=== PATIENT | female | born 1990 | race Caucasian/White ===

== ENCOUNTER 2017-01-08 20:13 | Emergency (ER) | payer SELFPAY ==
[2017-01-08 20:23] VITALS: BP 136/97; PULSE 118; RESP 16; TEMP 100.1
--- NOTE | 2017-01-08 20:39 | ED ---
Female Urogenital HPI - General Chief complaint: Urogenital Stated complaint: Infected Cyst Time Seen by Provider: 01/08/17 20:29 Source: patient Mode of arrival: ambulatory Limitations: no limitations - History of Present Illness Initial comments: Patient is a 26-year-old female presents with chief complaint of left labial pain has been going on for 4 days. Patient has a history of Bartholin's cyst which she's had lanced before. Patient is new to the area and does not have OB/ PATIENT SUPPORT ASSISTANT follow-up. Patient states that over the last 4 days, the pain has gotten worse. She was seen at urgent care yesterday and was prescribed Bactrim however they did not have the ability to lanced at that time. Patient admits to chills at home, she denies nausea, vomiting, dysuria. Patient states that she is sexually active, she is unsure of her possibility of being . - Related Data Home Medications Medication Instructions Recorded Confirmed Cholecalciferol (Vitamin D3) 6,000 unit PO DAILY 01/08/17 01/08/17 [Vitamin D3] Levothyroxine Sodium [Synthroid] 75 mcg PO DAILY 01/08/17 01/08/17 Sulfamethox-Tmp 800-160Mg [Bactrim 1 tab PO Q12HR 01/08/17 01/08/17 DS 800-160 mg] Allergies Allergy/AdvReac Type Severity Reaction Status Date / Time No Known Allergies Allergy Verified 01/08/17 20:41 Review of Systems ROS Statement: Those systems with pertinent positive or pertinent negative responses have been documented in the HPI. ROS Other: All systems not noted in ROS Statement are negative. Constitutional: Reports: fever, chills Eyes: Denies: vision change ENT: Denies: congestion Respiratory: Denies: cough Cardiovascular: Denies: chest pain Endocrine: Denies: fatigue Gastrointestinal: Denies: abdominal pain, nausea, vomiting Genitourinary: Denies: dysuria Musculoskeletal: Denies: back pain Skin: Denies: rash Neurological: Denies: headache, weakness Past Medical History Additional Past Medical History / Comment(s): hypothyroidism. History of Any Multi-Drug Resistant Organisms: MRSA Date of last positivie culture/infection: 2009 MDRO Source:: vaginal cyst Past Surgical History: No Surgical Hx Reported Past Psychological History: No Psychological Hx Reported Smoking Status: Current every day smoker Past Alcohol Use History: Occasional Past Drug Use History: None Reported General Exam Limitations: no limitations General appearance: alert, in no apparent distress Head exam: Present: atraumatic, normocephalic Eye exam: Present: normal appearance Respiratory exam: Present: normal lung sounds bilaterally Cardiovascular Exam: Present: regular rate, normal rhythm, normal heart sounds GI/Abdominal exam: Present: soft. Absent: distended, tenderness Rectal exam: Present: deferred External exam: Present: erythema, swelling, other (Patient has what appears to be an infected Bartholin's cyst on her left lower labia.) Neurological exam: Present: alert, oriented X3 Psychiatric exam: Present: normal affect, normal mood Skin exam: Present: warm, dry, intact Course Vital Signs 01/08/17 20:19 Temperature 100.1 F H Pulse Rate 118 H Respiratory 16 Rate Blood Pressure 136/97 O2 Sat by Pulse 99 Oximetry Procedures - Incision & Drainage Consent Obtained: verbal consent Time Out Performed?: Yes Indication: Bartholin's cyst Site: vulva/vagina Anesthetic Used: lidocaine 1% Sterile Field Used?: No Scalpel Used: #11 Needle Aspiration Performed?: No Irrigation Performed?: Yes I&D Drainage Obtained: Pus, Blood Culture Obtained?: No Patient Tolerated Procedure: well Medical Decision Making - Medical Decision Making Patient presents with a chief complaint of left labial pain. History and physical examination are concerning for an infected Bartholin gland cyst. Patient was prescribed Bactrim 2 days ago, however the cyst was not lanced. At this time, I will perform an I&D. 9:21 PM Urinalysis is showing questionable evidence of urinary tract infection however patient is currently on Bactrim which would be adequate to treat. I&D was performed with copious purulent drainage. Wound was left open. Copious jet irrigation was used to clean the inside of the abscess. Patient will be given contact information for OB follow-up. She is instructed to follow with primary care and return to the emergency department if her symptoms worsen or change in anyway. Patient tolerated the procedure well. This time, she is stable for discharge. - Lab Data Lab Results 01/08/17 Range/Units 20:45 Urine Color Yellow Urine Appearance Clear (Clear) Urine pH 5.5 (5.0-8.0) Ur Specific [place] 1.014 (1.001-1.035) Urine Protein Negative (Negative) Urine Glucose (UA) Negative (Negative) Urine Ketones Negative (Negative) Urine Blood Small H (Negative) Urine Nitrite Negative (Negative) Urine Bilirubin Negative (Negative) Urine Urobilinogen <2.0 (<2.0) mg/dL Ur Leukocyte Esterase Moderate H (Negative) Urine RBC 2 (0-5) /hpf Urine WBC 3 (0-5) /hpf Ur Squamous Epith Cells 4 (0-4) /hpf Disposition Clinical Impression: Cyst of Bartholin's gland duct Disposition: HOME SELF-CARE Condition: Good Instructions: Bartholin Cyst (ED) Referrals: None,Stated [Primary Care Provider] - 1-2 days Nirmala Leigh MD [REFERRING] - 1-2 days Macarena Sneed DO [Doctor of Osteopathic Medicine] - 1-2 days Ember Garcia DO [Doctor of Osteopathic Medicine] - 1-2 days
[2017-01-08 20:57] LABS: Appearance,Urine Clear (Clear); Bilirubin,Urine Negative (Negative); Glucose,Urine (UA) Negative (Negative); Ketones,Urine Negative (Negative); Leukocyte Esterase,Urine Moderate (Negative); Nitrite,Urine Negative (Negative); PH, Urine 5.5 (5.0-8.0); Particle Count 3446; Protein,Urine Negative (Negative); RBC,Urine 2 /hpf (0-5); Specific Gravity,Urine 1.014 (1.001-1.035); Squamous Epithelial Cell,Urine 4 /hpf (0-4); UA Billing (MACRO vs. MICRO) MICRO; Urobilinogen,Urine <2.0 mg/dL (<2.0); WBC,Urine 3 /hpf (0-5)
== END 2017-01-08 21:43 | disposition home or self-care (01) ==
LOC: EC 20:13
DX: N75.0 Cyst of Bartholin's gland (principal); E03.9 Hypothyroidism, unspecified; F17.200 Nicotine dependence, unspecified, uncomplicated; Z79.899 Other long term (current) drug therapy
CPT/HCPCS: 56420; 81001; 81025; 99283

== ENCOUNTER 2017-06-21 20:02 | Emergency (ER) | payer OTHER ==
[2017-06-21 21:48] VITALS: RESP 18
[2017-06-21 21:49] LABS: Basophils % (A) 0 %; Eosinophils # (A) 0.1 k/uL (0-0.7); Eosinophils % (A) 1 %; HCT 36.7 % (34.0-46.0); HGB 12.5 gm/dL (11.4-16.0); Lymphocytes # (A) 2.9 k/uL (1.0-4.8); Lymphocytes % (A) 28 %; MCH 28.3 pg (25.0-35.0); MCHC 34.2 g/dL (31.0-37.0); MCV 82.9 fL (80.0-100.0); Monocytes # (A) 0.4 k/uL (0-1.0); Monocytes % (A) 4 %; Neutrophils # (A) 6.6 k/uL (1.3-7.7); Neutrophils % (A) 65 %; Platelet Count 321 k/uL (150-450); RBC 4.43 m/uL (3.80-5.40); RDW 14.1 % (11.5-15.5); WBC 10.2 k/uL (3.8-10.6)
[2017-06-21 21:59] LABS: INR 0.9 (<1.2); Prothrombin Time 9.3 sec (9.0-12.0)
[2017-06-21 22:05] LABS: ALT 17 U/L (9-52); AST 11 U/L (14-36); Albumin 3.6 g/dL (3.5-5.0); Alkaline Phosphatase 52 U/L (38-126); Anion Gap 10 mmol/L; Blood Urea Nitrogen 6 mg/dL (7-17); Calcium 9.4 mg/dL (8.4-10.2); Carbon Dioxide 24 mmol/L (22-30); Chloride 104 mmol/L (98-107); Glucose 88 mg/dL (74-99); Magnesium 1.7 mg/dL (1.6-2.3); Potassium 3.6 mmol/L (3.5-5.1); Sodium 138 mmol/L (137-145); Total Bilirubin 0.2 mg/dL (0.2-1.3); Total Protein 6.7 g/dL (6.3-8.2)
[2017-06-21 22:08] LABS: Creatine Kinase 31 U/L (30-135)
[2017-06-21 22:21] LABS: Creatine Kinase MB <0.2 ng/mL (0.0-2.4); Troponin I <0.012 ng/mL (0.000-0.034)
--- NOTE | 2017-06-21 22:43 | ED ---
Arrhythmia/Palpitations HPI - General Chief Complaint: Arrhythmia/Palpitations Stated Complaint: heart palps (19 wks preg) Time Seen by Provider: 06/21/17 20:29 Source: patient Mode of arrival: ambulatory Limitations: no limitations - History of Present Illness Initial Comments: 7 years old female she is a 20 weeks presented with the tachyarrhythmia on arrival her heart rate was 1:30 we don't have any tracing 9 indicating otherwise is sinus tach or whether this was a any other arrhythmias she had experienced the same sort of tachyarrhythmia off-and-on for the last 3 weeks she said the palpitation persisted for about 20 minutes she was lightheaded she was short winded she got dizzy but by the time she arrived in the room home heart rate dropped down to normal and she had no symptoms that time she said this has been happening more frequently she has no history of heart disease - Related Data Home Medications Medication Instructions Recorded Confirmed Fmk-Dkrc-Aqddq Acid 1 cap PO DAILY 06/21/17 06/21/17 [-U Capsule (formulary)] Allergies Allergy/AdvReac Type Severity Reaction Status Date / Time No Known Allergies Allergy Verified 06/21/17 20:57 Review of Systems ROS Statement: Those systems with pertinent positive or pertinent negative responses have been documented in the HPI. ROS Other: All systems not noted in ROS Statement are negative. Past Medical History Additional Past Medical History / Comment(s): hypothyroidism. History of Any Multi-Drug Resistant Organisms: MRSA Date of last positivie culture/infection: 2009 MDRO Source:: vaginal cyst Past Surgical History: No Surgical Hx Reported Past Psychological History: No Psychological Hx Reported Smoking Status: Current every day smoker Past Alcohol Use History: Occasional Past Drug Use History: None Reported General Exam - General Exam Comments Initial Comments: General: The patient is awake and alert, in no distress, and does not appear acutely ill. Skin: Skin is warm and dry and no rashes or lesions are noted. Eye: Pupils are equal, round and reactive to light, extra-ocular movements are intact; there is normal conjunctiva bilaterally. Ears, nose, mouth and throat: There are moist mucous membranes and no oral lesions. Neck: The neck is supple, there is no tenderness or JVD. Cardiovascular: There is a regular rate and rhythm. No murmur, rub or gallop is appreciated. Respiratory: To auscultation bilateral, no wheezing no rhonchi no distress respiratory leonardo noticed Gastrointestinal: Soft, non-distended, non-tender abdomen without masses or organomegaly noted. There is no rebound or guarding present. Bowel sounds are unremarkable. Back: There is no tenderness to palpation in the midline. There is no obvious deformity. Musculoskeletal: Normal ROM, no tenderness, There is no pedal edema. There is no calf tenderness or swelling. No cords were appreciated. Neurological: CN II-XII intact, Cranial nerves III through XII are intact. There are no obvious motor or sensory deficits. Coordination appears grossly intact. Speech is normal. Psychiatric: Cooperative, appropriate mood & affect, normal judgment. Limitations: no limitations Course Vital Signs 06/21/17 06/21/17 06/21/17 20:11 21:14 21:41 Temperature 97.7 F 97.7 F Pulse Rate 130 H 80 Pulse Rate [ 77 Composition Teacher ] Respiratory 20 20 Rate Blood Pressure 176/95 124/79 O2 Sat by Pulse 100 99 Oximetry 06/21/17 21:45 Temperature Pulse Rate 91 Pulse Rate [ Composition Teacher ] Respiratory 18 Rate Blood Pressure 124/79 O2 Sat by Pulse 98 Oximetry , EKG is within normal range CBC, compressive metabolic panel, troponin, TSH are all within normal range she is feeling fine and we'll try to get hold of her OB doctor Spoke with Dr neil her OB doctor, she aggred with the idea that she see cardiology as out patient in AM and get the holter monitor, Patient agree with that EKG Findings - EKG Comments: EKG Findings:: EKG is normal sinus rhythm ventricular rate is 81 LA interval is 142 QRS duration is 82 QT/QTC 362//420 review of today's EKG does not reveal any STEMI Medical Decision Making - Lab Data Result diagrams: 06/21/17 21:18 06/21/17 21:18 Lab Results 06/21/17 06/21/17 06/21/17 Range/Units 21:18 21:18 21:18 WBC 10.2 (3.8-10.6) k/uL RBC 4.43 (3.80-5.40) m/uL Hgb 12.5 (11.4-16.0) gm/dL Hct 36.7 (34.0-46.0) % MCV 82.9 (80.0-100.0) fL MCH 28.3 (25.0-35.0) pg MCHC 34.2 (31.0-37.0) g/dL RDW 14.1 (11.5-15.5) % Plt Count 321 (150-450) k/uL Neutrophils % 65 % Lymphocytes % 28 % Monocytes % 4 % Eosinophils % 1 % Basophils % 0 % Neutrophils # 6.6 (1.3-7.7) k/uL Lymphocytes # 2.9 (1.0-4.8) k/uL Monocytes # 0.4 (0-1.0) k/uL Eosinophils # 0.1 (0-0.7) k/uL Basophils # 0.0 (0-0.2) k/uL PT (9.0-12.0) sec INR (<1.2) APTT (22.0-30.0) sec Sodium 138 (137-145) mmol/L Potassium 3.6 (3.5-5.1) mmol/L Chloride 104 (98-107) mmol/L Carbon Dioxide 24 (22-30) mmol/L Anion Gap 10 mmol/L BUN 6 L (7-17) mg/dL Creatinine 0.50 L (0.52-1.04) mg/dL Est GFR (CKD-EPI)AfAm >90 (>60 ml/min/1.73 sqM) Est GFR (CKD-EPI)NonAf >90 (>60 ml/min/1.73 sqM) Glucose 88 (74-99) mg/dL Calcium 9.4 (8.4-10.2) mg/dL Magnesium 1.7 (1.6-2.3) mg/dL Total Bilirubin 0.2 (0.2-1.3) mg/dL AST 11 L (14-36) U/L ALT 17 (9-52) U/L Alkaline Phosphatase 52 (38-126) U/L Total Creatine Kinase 31 (30-135) U/L CK-MB (CK-2) <0.2 (0.0-2.4) ng/mL CK-MB (CK-2) Rel Index Troponin I <0.012 (0.000-0.034) ng/mL Total Protein 6.7 (6.3-8.2) g/dL Albumin 3.6 (3.5-5.0) g/dL TSH 3.200 (0.465-4.680) mIU/L 06/21/17 Range/Units 21:18 WBC (3.8-10.6) k/uL RBC (3.80-5.40) m/uL Hgb (11.4-16.0) gm/dL Hct (34.0-46.0) % MCV (80.0-100.0) fL MCH (25.0-35.0) pg MCHC (31.0-37.0) g/dL RDW (11.5-15.5) % Plt Count (150-450) k/uL Neutrophils % % Lymphocytes % % Monocytes % % Eosinophils % % Basophils % % Neutrophils # (1.3-7.7) k/uL Lymphocytes # (1.0-4.8) k/uL Monocytes # (0-1.0) k/uL Eosinophils # (0-0.7) k/uL Basophils # (0-0.2) k/uL PT 9.3 (9.0-12.0) sec INR 0.9 (<1.2) APTT 23.0 (22.0-30.0) sec Sodium (137-145) mmol/L Potassium (3.5-5.1) mmol/L Chloride (98-107) mmol/L Carbon Dioxide (22-30) mmol/L Anion Gap mmol/L BUN (7-17) mg/dL Creatinine (0.52-1.04) mg/dL Est GFR (CKD-EPI)AfAm (>60 ml/min/1.73 sqM) Est GFR (CKD-EPI)NonAf (>60 ml/min/1.73 sqM) Glucose (74-99) mg/dL Calcium (8.4-10.2) mg/dL Magnesium (1.6-2.3) mg/dL Total Bilirubin (0.2-1.3) mg/dL AST (14-36) U/L ALT (9-52) U/L Alkaline Phosphatase (38-126) U/L Total Creatine Kinase (30-135) U/L CK-MB (CK-2) (0.0-2.4) ng/mL CK-MB (CK-2) Rel Index Troponin I (0.000-0.034) ng/mL Total Protein (6.3-8.2) g/dL Albumin (3.5-5.0) g/dL TSH (0.465-4.680) mIU/L Disposition Clinical Impression: Palpitation Disposition: HOME SELF-CARE Instructions: Palpitations (ED) Referrals: None,Stated [Primary Care Provider] - 1-2 days Toribio Acosta MD [STAFF PHYSICIAN] - 1-2 days
[2017-06-21 23:43] VITALS: BP 168/78; PULSE 74; TEMP 97.8
== END 2017-06-21 23:27 | disposition home or self-care (01) ==
LOC: EC 20:02
DX: O99.89 Other specified diseases and conditions complicating pregnancy, childbirth and the puerperium (principal); R00.2 Palpitations; R42 Dizziness and giddiness; O99.332 Smoking (tobacco) complicating pregnancy, second trimester; F17.200 Nicotine dependence, unspecified, uncomplicated; Z3A.19 19 weeks gestation of pregnancy; Z86.14 Personal history of Methicillin resistant Staphylococcus aureus infection
CPT/HCPCS: 36415; 80053; 82550; 82553; 83735; 84443; 84484; 85025; 85610; 85730; 93005; 99285

== ENCOUNTER 2017-06-23 14:15 | Emergency (ER) | payer OTHER ==
[2017-06-23] MEDS ORDERED: SODIUM CHLORIDE 0.9% 1,000 ML IV ONE (15:05)
--- NOTE | 2017-06-23 15:14 | ED ---
SOB HPI - General Chief Complaint: Shortness of Breath Stated Complaint: 19 wks preg/SOB & heart racing Time Seen by Provider: 06/23/17 14:58 Source: patient Mode of arrival: wheelchair Limitations: no limitations - History of Present Illness Initial Comments: 27-year-old female patient presents to the emergency department today for complaints of palpitations and shortness of breath. Patient states around 2 PM this afternoon she was sitting at her desk at work when she had sudden onset racing heart and shortness of breath. She also reports dizziness with this. Patient states that it felt like she was doing physical activity however she was just sitting there. Patient is 19 weeks . She is . She denies any history of similar symptoms with her previous . States that she has been having intermittent episodes like this over the last few weeks. States that most recent episode was 2 days ago. States she is scheduled to have a Holter monitor placed however she was instructed to return here for symptoms came back. She states that she is starting to feel better at this time however it does still feel like her heart is racing. She denies any chest pain with this. Denies any leg or calf pain, denies any leg redness, leg swelling, recent trips or long car rides. Denies history of DVT personal or family. Denies any fevers or chills. She denies any near-syncope. Denies any abdominal pain, cramping, vaginal bleeding, vaginal discharge, hematuria, dysuria, urinary frequency, urinary urgency. She denies any history of asthma or lung conditions. - Related Data Home Medications Medication Instructions Recorded Confirmed Yyb-Hutp-Tpioo Acid 1 cap PO DAILY 06/21/17 06/23/17 [-U Capsule (formulary)] Allergies Allergy/AdvReac Type Severity Reaction Status Date / Time No Known Allergies Allergy Verified 06/23/17 15:06 Review of Systems ROS Statement: Those systems with pertinent positive or pertinent negative responses have been documented in the HPI. ROS Other: All systems not noted in ROS Statement are negative. Past Medical History Past Medical History: Thyroid Disorder Additional Past Medical History / Comment(s): hypothyroidism. History of Any Multi-Drug Resistant Organisms: MRSA Date of last positivie culture/infection: 2009 MDRO Source:: vaginal cyst Past Surgical History: No Surgical Hx Reported Past Psychological History: No Psychological Hx Reported Smoking Status: Current every day smoker Past Alcohol Use History: Occasional Past Drug Use History: None Reported General Exam Limitations: no limitations General appearance: alert, in no apparent distress, other (This is a well- developed, well-nourished adult female patient in no acute distress. Vital signs upon presentation are temperature 98.3, pulse 1:15, respirations 22, blood pressure 142/74, pulse ox 98% on room air.) Eye exam: Present: normal appearance, PERRL, EOMI. Absent: scleral icterus, conjunctival injection, periorbital swelling ENT exam: Present: normal exam, normal oropharynx, mucous membranes moist Respiratory exam: Present: normal lung sounds bilaterally. Absent: respiratory distress, wheezes, rales, rhonchi, stridor Cardiovascular Exam: Present: normal rhythm, tachycardia, normal heart sounds. Absent: systolic murmur, diastolic murmur, rubs, gallop, clicks GI/Abdominal exam: Present: soft, normal bowel sounds, other (Gravid abdomen.). Absent: distended, tenderness, guarding, rebound, rigid Neurological exam: Present: alert, oriented X3, CN II-XII intact Psychiatric exam: Present: normal affect, normal mood Skin exam: Present: warm, dry, intact, normal color. Absent: rash Course Vital Signs 06/23/17 06/23/17 14:35 17:18 Temperature 98.3 F 98.9 F Pulse Rate 115 H 93 Respiratory 22 20 Rate Blood Pressure 142/74 125/78 O2 Sat by Pulse 98 99 Oximetry Medical Decision Making - Medical Decision Making 27-year-old female patient presented to the emergency department today for evaluation of palpitations, shortness of breath, and dizziness. Physical examination is unremarkable. Patient is neurologically intact. EKG shows normal sinus rhythm with a rate of 95. heart tones are 138-144. Labs reviewed and were unremarkable. Patient has been having similar episodes to this over the last few weeks. She is scheduled to have altered her monitor placed on however we will change the order to an event monitor and have it placed today prior to her leaving here. She is instructed to follow up with her [facility] as well as cardiology. She is instructed to return here immediately for any new, worsening, or concerning symptoms. She verbalizes understanding and agrees with this plan. - Lab Data Result diagrams: 06/23/17 15:15 06/23/17 15:15 Lab Results 06/23/17 06/23/17 Range/Units 15:15 15:15 WBC 10.4 (3.8-10.6) k/uL RBC 4.21 (3.80-5.40) m/uL Hgb 11.7 (11.4-16.0) gm/dL Hct 34.2 (34.0-46.0) % MCV 81.3 (80.0-100.0) fL MCH 27.9 (25.0-35.0) pg MCHC 34.3 (31.0-37.0) g/dL RDW 14.0 (11.5-15.5) % Plt Count 312 (150-450) k/uL Neutrophils % 77 % Lymphocytes % 17 % Monocytes % 3 % Eosinophils % 2 % Basophils % 0 % Neutrophils # 8.0 H (1.3-7.7) k/uL Lymphocytes # 1.8 (1.0-4.8) k/uL Monocytes # 0.3 (0-1.0) k/uL Eosinophils # 0.2 (0-0.7) k/uL Basophils # 0.0 (0-0.2) k/uL Sodium 136 L (137-145) mmol/L Potassium 3.6 (3.5-5.1) mmol/L Chloride 106 (98-107) mmol/L Carbon Dioxide 19 L (22-30) mmol/L Anion Gap 11 mmol/L BUN 6 L (7-17) mg/dL Creatinine 0.43 L (0.52-1.04) mg/dL Est GFR (CKD-EPI)AfAm >90 (>60 ml/min/1.73 sqM) Est GFR (CKD-EPI)NonAf >90 (>60 ml/min/1.73 sqM) Glucose 136 H (74-99) mg/dL Calcium 9.3 (8.4-10.2) mg/dL Magnesium 1.6 (1.6-2.3) mg/dL Total Bilirubin 0.2 (0.2-1.3) mg/dL AST 13 L (14-36) U/L ALT 18 (9-52) U/L Alkaline Phosphatase 50 (38-126) U/L Total Protein 6.4 (6.3-8.2) g/dL Albumin 3.4 L (3.5-5.0) g/dL When compared to previous EKG there are: no significant change, other (Compared to EKG from 06/21/2017.) 06/23/17 15:35 EKG shows normal sinus rhythm with possible left atrial enlargement. Ventricular rate is 95, KS interval 146, QRS duration 84, QT 352, QTc 442. No evidence of ST elevation or depression. Disposition Clinical Impression: Intermittent palpitations Disposition: HOME SELF-CARE Condition: Good Instructions: Palpitations (ED) Additional Instructions: Follow-up with cardiology as soon as possible. Follow up with your [facility] as soon as possible. Return here immediately for any new, worsening, or concerning symptoms. Referrals: None,Stated [Primary Care Provider] - 1-2 days Percy Orosco MD [STAFF PHYSICIAN] - 1-2 days Ginna Mohamud DO [Doctor of Osteopathic Medicine] - 1-2 days Time of Disposition: 17:15
[2017-06-23 15:29] LABS: Basophils % (A) 0 %; Eosinophils # (A) 0.2 k/uL (0-0.7); Eosinophils % (A) 2 %; HCT 34.2 % (34.0-46.0); HGB 11.7 gm/dL (11.4-16.0); Lymphocytes # (A) 1.8 k/uL (1.0-4.8); Lymphocytes % (A) 17 %; MCH 27.9 pg (25.0-35.0); MCHC 34.3 g/dL (31.0-37.0); MCV 81.3 fL (80.0-100.0); Mean Platelet Volume 6.1; Monocytes # (A) 0.3 k/uL (0-1.0); Monocytes % (A) 3 %; Neutrophils % (A) 77 %; Platelet Count 312 k/uL (150-450); RBC 4.21 m/uL (3.80-5.40); WBC 10.4 k/uL (3.8-10.6)
[2017-06-23 15:37] LABS: ALT 18 U/L (9-52); AST 13 U/L (14-36); Albumin 3.4 g/dL (3.5-5.0); Alkaline Phosphatase 50 U/L (38-126); Anion Gap 11 mmol/L; Blood Urea Nitrogen 6 mg/dL (7-17); Calcium 9.3 mg/dL (8.4-10.2); Carbon Dioxide 19 mmol/L (22-30); Chloride 106 mmol/L (98-107); Glucose 136 mg/dL (74-99); Magnesium 1.6 mg/dL (1.6-2.3); Potassium 3.6 mmol/L (3.5-5.1); Sodium 136 mmol/L (137-145); Total Bilirubin 0.2 mg/dL (0.2-1.3); Total Protein 6.4 g/dL (6.3-8.2)
[2017-06-23 17:21] VITALS: BP 125/78; PULSE 93; RESP 20; TEMP 98.9
== END 2017-06-23 17:30 | disposition home or self-care (01) ==
LOC: EC 14:15
DX: O99.89 Other specified diseases and conditions complicating pregnancy, childbirth and the puerperium (principal); R00.2 Palpitations; R06.02 Shortness of breath; O99.332 Smoking (tobacco) complicating pregnancy, second trimester; F17.200 Nicotine dependence, unspecified, uncomplicated; Z86.14 Personal history of Methicillin resistant Staphylococcus aureus infection; Z3A.19 19 weeks gestation of pregnancy
CPT/HCPCS: 36415; 80053; 83735; 85025; 93005; 93270; 93271; 96360; 99285

== ENCOUNTER 2017-07-13 13:47 | Outpatient (CLI) | payer OTHER ==
[2017-07-13 14:22] VITALS: BP 139/87; PULSE 99; RESP 16; TEMP 98
--- NOTE | 2017-07-21 08:10 | P.MSEPDOC ---
Presenting Problems - Arrival Data Date of Arrival on Unit: 07/13/17 Time of Arrival on Unit: 13:40 Mode of Transport: Ambulatory - Complaint OB-Reason for Admission/Chief Complaint: Rule Out PROM Comment: Pt states clear, "sweet" smelling discharge, off & on x 1 week Medical History - Information : 2 Para: 1 Term: 1 : 0 Abortions: Spontaneous or Elective: 0 Number of Living Children: 1 - Gestational Age Gestational Age by PUNEET (wks/days): 22 Weeks and 5 Days Review of Systems - Review of Systems Constitutional: No problems Breast: No problems ENT: No problems Cardiovascular: No problems Respiratory: No problems Gastrointestinal: No problems Genitourinary: No problems Musculoskeletal: No problems Neurological: No problems Skin: No problems Vital Signs - Temperature Temperature: 98 F Temperature Source: Oral - Pulse Right Sitting Brachial Pulse Rate: 99 Pulse Assessment Method: Pulse Oximetry - Respirations Respiratory Rate: 16 Oxygen Delivery Method: Room Air O2 Sat by Pulse Oximetry: 100 - Blood Pressure Right Arm Sitting Blood Pressure: 139/87 Blood Pressure Mean: 104 Medical Screen Scoring (Pre) - Cervical Exam Dilation: Exam Deferred Effacement: Exam Deferred Membranes: Intact - Uterine Contractions Frequency: N/A Duration: N/A Intensity: N/A - Maternal Vital Signs Maternal Temperature: N/A Maternal Blood Pressure: N/A Signs of Preeclampsia: N/A Maternal Respirations: N/A - Pain Assessment Pain Scale Used: Numeric (1 - 10) Pain Intensity: 0 - Assessment Baseline FHR: 140 Heart Rate - NICHD Category: Category I (Normal) = 0 Position: N/A Station: N/A - Total Score Total Score (Pre): 0 - Level of Risk Level of Risk: Low (0-5) Physician Notification (Pre) - Physician Notified Physician Notified Date: 07/13/17 Physician Notified Time: 14:10 Physician/Practitioner Notifed:: Shon Spoke With: Shon New Order Received: Yes (discharge) - Notification Comment Comment: Spk c\\Dr. Menendez, advsd pt of Dr. Mohamud, , 22 08/10, c/o "sweet" smelling discharge off/on x 1 wk. Amnisure performed, negative. FHT dopplered 137-149 x 1 min. Discharge thin, clear, mucous, odor non-malodorous, appt with Dr. Mohamud 07/20. States to d/c home, [facility] re: changes to discharge to call [facility] for appt. Disposition - Disposition OB Disposition: Discharge to home, Written follow up instructions reviewed Discharge Date: 07/13/17 Discharge Time: 14:20 I agree with the RN Medical Screening Exam: Yes Risk & Benefit of care provided described in d/c instruction: Yes Diagnosis: RELATED CONDITIONS, UNSPECIFIED, SECOND TRIMESTER
== END 2017-07-13 14:20 | disposition home or self-care (01) ==
LOC: FBPOP 13:47
PROVIDERS: ATTEND Obstetrics & Gynecology
DX: O26.92 Pregnancy related conditions, unspecified, second trimester (principal); Z3A.22 22 weeks gestation of pregnancy
CPT/HCPCS: 84112; 99213

== ENCOUNTER 2017-10-30 09:25 | Inpatient (IN) | payer OTHER ==
[2017-10-30] MEDS ORDERED: LIDOCAINE 1% (PF) 10 MG/ML (30 ML SDV) SQ PRN (09:41)
[2017-10-30] MEDS ORDERED: TERBUTALINE 1 MG/ML VIAL SQ PRN (09:41)
[2017-10-30] MEDS ORDERED: METHYLERGONOVINE 0.2 MG/ML 1 ML AMP IM PRN (09:41)
[2017-10-30] MEDS ORDERED: OXYTOCIN 10 UNIT/ML 1 ML VIAL IM PRN (09:41)
[2017-10-30] MEDS ORDERED: CARBOPROST TROMETHAMINE 250 MCG/ML 1 ML AMP IM PRN (09:41)
[2017-10-30] MEDS ORDERED: OXYTOCIN 20 UNITS/1000 ML NS 1,000 ML IV SCH ×2 (09:45→18:00)
[2017-10-30 09:47] VITALS: BMI 34.7
[2017-10-30 09:54] LABS: Basophils % (A) 0 %; Eosinophils # (A) 0.1 k/uL (0-0.7); Eosinophils % (A) 1 %; HCT 34.4 % (34.0-46.0); HGB 10.7 gm/dL (11.4-16.0); Hypochromasia Moderate; Lymphocytes # (A) 1.9 k/uL (1.0-4.8); Lymphocytes % (A) 22 %; MCH 24.2 pg (25.0-35.0); MCHC 31.2 g/dL (31.0-37.0); MCV 77.4 fL (80.0-100.0); Mean Platelet Volume 6.3; Microcytosis Slight; Monocytes # (A) 0.5 k/uL (0-1.0); Monocytes % (A) 6 %; Neutrophils # (A) 5.8 k/uL (1.3-7.7); Neutrophils % (A) 68 %; Platelet Count 327 k/uL (150-450); Poikilocytosis Slight; RBC 4.44 m/uL (3.80-5.40); RDW 15.5 % (11.5-15.5); WBC 8.6 k/uL (3.8-10.6)
[2017-10-30] MEDS: LACTATED RINGERS 1,000 ML IV SCH ×2 (10:04→13:52)
[2017-10-30] MEDS ORDERED: fentaNYL (PF) 50 MCG/ML 5 ML AMP ONE (13:31)
[2017-10-30] MEDS ORDERED: ROPIVACAINE 5MG/ML 20ML VIAL ONE (13:31)
[2017-10-30] MEDS ORDERED: SODIUM CHLORIDE 0.9% 100 ML BAG ONE (13:31)
--- NOTE | 2017-10-30 15:18 | P.HPOB ---
History of Present Illness H&P Date: 10/30/17 Chief Complaint: IUP at 38-2/7 weeks, polyhydramnios, LGA, decreased movement This is a 27-year-old 2 para 1001 at 38-2/7 weeks that presents to labor and delivery with complaints of decreased movement, known LGA her weight of 8 lbs. 14 oz. greater than the 90th 7th percentile at 37-6/7 weeks. Polyhydramnios was noted on an ultrasound in addition. Patient is noting an occasional contraction on physical exam in the office she was noted to be 4 cm dilated. On blood work showed a blood type of A+, rubella immune, RPR nonreactive, hepatitis B surface antigen negative, HIV negative, group beta strep was negative on 10/12/2017. She has been receiving routine care with myself since 6 weeks gestation. Patient does have a known history of a macrosomic infant 9-11, she did pass her gds at 28 weeks and hypothyroidism, patient's thyroid has been stable throughout . Review of Systems Constitutional: Denies chills, Denies fever Ears, nose, mouth and throat: Denies headache Cardiovascular: Reports leg edema Respiratory: Denies dyspnea Gastrointestinal: Denies constipation, Denies diarrhea Genitourinary: Reports Past Medical History Past Medical History: Thyroid Disorder Additional Past Medical History / Comment(s): hypothyroidism. History of Any Multi-Drug Resistant Organisms: None Reported, MRSA Date of last positivie culture/infection: 2009 MDRO Source:: vaginal cyst Past Surgical History: No Surgical Hx Reported Past Anesthesia/Blood Transfusion Reactions: No Reported Reaction Smoking Status: Never smoker - Past Family History Mother Family Medical History: No Reported History Medications and Allergies Home Medications Medication Instructions Recorded Confirmed Type Xcm-Rrxx-Jpdfr Acid 1 cap PO DAILY 06/21/17 10/30/17 History [-U Capsule (formulary)] Esomeprazole Magnesium [NexIUM] 20 mg PO DAILY 10/30/17 10/30/17 History Levothyroxine Sodium [Synthroid] 75 mcg PO DAILY 10/30/17 10/30/17 History Allergies Allergy/AdvReac Type Severity Reaction Status Date / Time No Known Allergies Allergy Verified 10/30/17 09:40 Exam Osteopathic Statement: *. No significant issues noted on an osteopathic structural exam other than those noted in the History and Physical/Consult. Vital Signs Temp Pulse Resp BP Pulse Ox 10/30/17 09:44 96.3 F L 114 H 16 145/83 97 Intake and Output 10/30/17 10/30/17 10/30/17 06:59 14:59 22:59 Other: Weight 112.945 kg - OBG Physical Exam Abdomen: gravid Cervix: 4/80/-3 Uterus: enlarged Results Result Diagrams: 10/30/17 09:40 Abnormal Lab Results - Last 24 Hours (Table) 10/30/17 Range/Units 09:40 Hgb 10.7 L (11.4-16.0) gm/dL MCV 77.4 L (80.0-100.0) fL MCH 24.2 L (25.0-35.0) pg Assessment and Plan (1) Term Current Visit: Yes Status: Acute Code(s): Z34.80 - ENCOUNTER FOR SUPRVSN OF NORMAL , UNSP TRIMESTER SNOMED Code(s): 53259076 (2) LGA (large for gestational age) fetus Current Visit: Yes Status: Acute Code(s): UDX9975 - SNOMED Code(s): 908244398 (3) Decreased movement Current Visit: Yes Status: Acute Code(s): O36.8190 - DECREASED MOVEMENTS, UNSP TRIMESTER, UNSP SNOMED Code(s): 301726596 (4) Polyhydramnios Current Visit: Yes Status: Acute Code(s): O40.9XX0 - POLYHYDRAMNIOS, UNSP TRIMESTER, NOT APPLICABLE OR UNSP SNOMED Code(s): 69793335 Plan: We'll admit to labor and delivery for induction of labor with Pitocin. Amniotomy when appropriate, epidural versus Stadol is discussed and patient will decide as she progresses through labor. Anticipate spontaneous vaginal delivery later this afternoon
[2017-10-30] MEDS ORDERED: BENZOCAINE/MENTHOL SPRAY 1 GM/SPRAY AEROSOL TOPICAL PRN (17:51)
[2017-10-30] MEDS ORDERED: LANOLIN CREAM 5 GM TUBE TOPICAL PRN (17:51)
[2017-10-30] MEDS ORDERED: HYDROCORTISONE 2.5% RECTAL CREAM 30 GM TUBE RECTAL PRN (17:51)
[2017-10-30] MEDS ORDERED: SIMETHICONE 80 MG CHEWABLE PO PRN (17:51)
[2017-10-30] MEDS ORDERED: WITCH HAZEL 1 EACH MED..PAD TOPICAL PRN (17:51)
[2017-10-30] MEDS ORDERED: diphenhydrAMINE 50 MG CAP PO PRN (17:51)
[2017-10-30] MEDS ORDERED: diphenhydrAMINE 50 MG/ML 1 ML VIAL IVP PRN ×2 (17:51)
[2017-10-30] MEDS ORDERED: diphenhydrAMINE 25 MG CAP PO PRN (17:51)
[2017-10-30] MEDS ORDERED: ZOLPIDEM 5 MG TAB PO PRN (17:51)
--- NOTE | 2017-10-30 17:58 | P.PROBDLV ---
Vaginal Delivery Note - . Vaginal Delivery Note: This is a 27-year-old 2 para 1001 at 38-2/7 weeks with known LGA, polyhydramnios. Patient was seen in the office today cervix was noted to be 4 cm, 80% with a bulging bag of water. Patient was seen 2 days prior noted to be 3 cm the decision was made at that time for elective induction of labor secondary to large for gestational age, polyhydramnios, in addition decreased movement. Patient was admitted to labor and delivery induction was begun with Pitocin, amniotomy was performed with copious amounts of clear amniotic fluid being obtained. Patient progressed in labor eventually getting an epidural progressed to complete began pushing and had a normal spontaneous vaginal delivery of a viable male infant at 1729, weight of 8 lbs. 9 oz., Apgars of 9 and 9 at one and 5 minutes respectively. A spontaneous cry was noted at . Afterwards the placenta was delivered spontaneously intact with three-vessel cord. Inspection the patient's vaginal vault a second degree midline laceration was noted this was repaired in the usual fashion. Further inspection of the patient's vaginal vault revealed no other lacerations. The uterus was noted to be firm at this time and below the umbilicus. Estimated blood loss 300 cc. Patient and tolerated delivery well and are in stable condition
[2017-10-30] MEDS: SENNOSIDES-DOCUSATE SODIUM 1 EACH TAB PO SCH (20:22)
[2017-10-30] MEDS: IBUPROFEN 600 MG TAB PO PRN (20:22)
[2017-10-31] MEDS: ACETAMINOPHEN TAB 325 MG TAB PO PRN ×3 (00:18→18:29)
[2017-10-31] MEDS: IBUPROFEN 600 MG TAB PO PRN ×2 (03:20→15:45)
[2017-10-31] MEDS: LACTATED RINGERS 1,000 ML IV SCH (04:13)
[2017-10-31 04:15] VITALS: RESP 18
[2017-10-31 08:02] LABS: Basophils % (A) 0 %; Eosinophils # (A) 0.1 k/uL (0-0.7); Eosinophils % (A) 1 %; HCT 28.9 % (34.0-46.0); Hypochromasia Slight; Lymphocytes # (A) 2.1 k/uL (1.0-4.8); Lymphocytes % (A) 22 %; MCH 23.4 pg (25.0-35.0); MCHC 30.8 g/dL (31.0-37.0); Microcytosis Slight; Monocytes # (A) 0.5 k/uL (0-1.0); Monocytes % (A) 5 %; Neutrophils # (A) 6.5 k/uL (1.3-7.7); Neutrophils % (A) 69 %; Platelet Count 294 k/uL (150-450); RDW 15.6 % (11.5-15.5); WBC 9.5 k/uL (3.8-10.6)
[2017-10-31 08:09] LABS: HGB 8.9 gm/dL (11.4-16.0)
[2017-10-31] MEDS: SENNOSIDES-DOCUSATE SODIUM 1 EACH TAB PO SCH (08:15)
[2017-10-31] MEDS ORDERED: LEVOTHYROXINE 75 MCG TAB PO SCH (09:00)
[2017-10-31] MEDS ORDERED: PRENATAL VIT-IRON-FOLIC ACID 1 EACH CAP PO SCH (09:00)
--- NOTE | 2017-10-31 09:49 | P.PNOBGVD ---
Subjective - Subjective Principal diagnosis: PPD 1 Interval history: Pt is doing well post . she denies concerns today, lochia is minimal. denies nausea vomiting and is tolerating a regular diet. she is without difficulty. She states her pain is well-controlled and she does wish to stay 1 more day. Patient reports: Reports appetite normal, Reports voiding normally, Reports pain well controlled, Reports ambulating normally : doing well, nursing well Objective - Latest Vital Signs Latest vital signs: Vital Signs Temp Pulse Resp BP Pulse Ox 10/31/17 04:00 98.4 F 79 18 117/70 98 10/31/17 00:00 98.4 F 95 17 144/82 97 10/30/17 19:36 99.1 F 93 17 126/73 98 10/30/17 19:06 98.1 F 87 17 138/82 98 10/30/17 18:36 98.7 F 89 16 140/81 10/30/17 18:21 85 16 125/77 10/30/17 18:06 93 16 139/72 10/30/17 17:51 88 16 138/78 10/30/17 17:36 97.5 F L 99 16 140/80 10/30/17 09:44 96.3 F L 114 H 16 145/83 97 Intake and Output 10/30/17 10/31/17 10/31/17 22:59 06:59 14:59 Output Total 300 Balance -300 Output: Estimated Blood Loss 300 Other: # Voids 1 1 - Exam Extremities: Present: edema Abdomen: Present: normal appearance, soft Uterus: Present: firm - Labs Labs: Abnormal Lab Results - Last 24 Hours (Table) 10/30/17 10/31/17 Range/Units 09:40 07:42 Hgb 10.7 L 8.9 L D (11.4-16.0) gm/dL Hct 28.9 L (34.0-46.0) % MCV 77.4 L 76.0 L (80.0-100.0) fL MCH 24.2 L 23.4 L (25.0-35.0) pg MCHC 30.8 L (31.0-37.0) g/dL RDW 15.6 H (11.5-15.5) % Assessment and Plan (1) Term Current Visit: Yes Status: Acute Code(s): Z34.80 - ENCOUNTER FOR SUPRVSN OF NORMAL , UNSP TRIMESTER SNOMED Code(s): 52820205 (2) LGA (large for gestational age) fetus Current Visit: Yes Status: Acute Code(s): NAQ7746 - SNOMED Code(s): 529341413 (3) Decreased movement Current Visit: Yes Status: Acute Code(s): O36.8190 - DECREASED MOVEMENTS, UNSP TRIMESTER, UNSP SNOMED Code(s): 155112662 (4) Polyhydramnios Current Visit: Yes Status: Acute Code(s): O40.9XX0 - POLYHYDRAMNIOS, UNSP TRIMESTER, NOT APPLICABLE OR UNSP SNOMED Code(s): 75731121 (5) Acute blood loss anemia Current Visit: Yes Status: Acute Code(s): D62 - ACUTE POSTHEMORRHAGIC ANEMIA SNOMED Code(s): 567429061 Plan: We'll start iron sulfate given acute blood loss anemia, and continue routine care. Anticipate discharge tomorrow morning
--- NOTE | 2017-10-31 10:57 | P.DS ---
Providers Date of admission: 10/30/17 09:25 Expected date of discharge: 10/31/17 Attending physician: Ginna Mohamud Primary care physician: Stated None - Discharge Diagnosis(es) (1) Term Current Visit: Yes Status: Acute (2) LGA (large for gestational age) fetus Current Visit: Yes Status: Acute (3) Decreased movement Current Visit: Yes Status: Acute (4) Polyhydramnios Current Visit: Yes Status: Acute (5) Acute blood loss anemia Current Visit: Yes Status: Acute (6) Status post vaginal delivery Current Visit: Yes Status: Acute Hospital Course: This is a very pleasant 27-year-old 2 para 1001 at 38-2/7 weeks with known large for gestational age , polyhydramnios and decreased movement. Patient was seen in the office and found to be 4 cm dilated was sent over for induction of labor. Patient was started on Pitocin became uncomfortable eventually requesting an epidural which was done without difficulty by anesthesia. She progressed to complete and had a normal spontaneous vaginal delivery of a viable male infant weight 8 lbs. 9 oz. at 1729 , Apgars of 9 and 9 at one and 5 minutes respectively. Patient's course has been uneventful. She is ambulating and voiding without difficulty. She is tolerating a regular diet without nausea or vomiting. She states her pain is well-controlled. She is breast-feeding without difficulty. She does wish discharge home on this day #1 Patient Condition at Discharge: Good Plan - Discharge Summary Discharge Rx Participant: No New Discharge Prescriptions: No Action Srx-Ybxv-Gvbjh Acid [-U Capsule (formulary)] 1 cap PO DAILY Levothyroxine Sodium [Synthroid] 75 mcg PO DAILY Esomeprazole Magnesium [NexIUM] 20 mg PO DAILY Discharge Medication List Iun-Nkbr-Bunib Acid [-U Capsule (formulary)] 1 cap PO DAILY [History] Esomeprazole Magnesium [NexIUM] 20 mg PO DAILY 10/30/17 [History] Levothyroxine Sodium [Synthroid] 75 mcg PO DAILY 10/30/17 [History] Follow up Appointment(s)/Referral(s): Ginna Mohamud DO [Doctor of Osteopathic Medicine] - 1 Week Activity/Diet/Wound Care/Special Instructions: No tub baths or intercourse until 6 weeks Discharge Disposition: HOME SELF-CARE
[2017-10-31 11:35] VITALS: TEMP 98
[2017-10-31 16:06] VITALS: BP 116/84; PULSE 76
== END 2017-10-31 18:39 | disposition home or self-care (01) | DRG 775 ==
LOC: 4FBP 09:25
PROVIDERS: ADMIT Obstetrics & Gynecology Obstetrics; ATTEND Obstetrics & Gynecology Obstetrics
PROC: 3E0R3NZ Introduction of Analgesics, Hypnotics, Sedatives into Spinal Canal, Percutaneous Approach (ICD-10-PCS; principal; 2017-10-30)
PROC: 10E0XZZ Delivery of Products of Conception, External Approach (ICD-10-PCS; principal; 2017-10-30)
PROC: 0KQM0ZZ Repair Perineum Muscle, Open Approach (ICD-10-PCS; principal; 2017-10-30)
PROC: 00HU33Z Insertion of Infusion Device into Spinal Canal, Percutaneous Approach (ICD-10-PCS; principal; 2017-10-30)
PROC: 10907ZC Drainage of Amniotic Fluid, Therapeutic from Products of Conception, Via Natural or Artificial Opening (ICD-10-PCS; 2017-10-30)
DX: O40.3XX0 Polyhydramnios, third trimester, not applicable or unspecified (principal); D62 Acute posthemorrhagic anemia; O70.1 Second degree perineal laceration during delivery; O99.02 Anemia complicating childbirth; O36.8130 Decreased fetal movements, third trimester, not applicable or unspecified; Z37.0 Single live birth; O99.284 Endocrine, nutritional and metabolic diseases complicating childbirth; E03.9 Hypothyroidism, unspecified; O36.63X0 Maternal care for excessive fetal growth, third trimester, not applicable or unspecified; K21.9 Gastro-esophageal reflux disease without esophagitis; O99.62 Diseases of the digestive system complicating childbirth; Z3A.38 38 weeks gestation of pregnancy; Z79.890 Hormone replacement therapy; Z79.899 Other long term (current) drug therapy
CPT/HCPCS: 85025

== ENCOUNTER 2017-11-23 04:42 | Inpatient (IN) | payer OTHER ==
[2017-11-23] MEDS ORDERED: MAG HYDROX/AL HYDROX/SIMETH 30 ML, HYOSCYAMINE ELIXIR 10 ML, CIMETIDINE HCL 300 MG, LID... PO STA ×4 (05:10)
--- NOTE | 2017-11-23 05:18 | ED ---
Abdominal Pain HPI - General Source: patient, family Mode of arrival: ambulatory Limitations: no limitations - History of Present Illness MD Complaint: abdominal pain Onset/Timin -: hour(s) Location: epigastric Radiation: back Migration to: no migration Severity: moderate Quality: aching Consistency: constant Improves With: nothing Worsens With: nothing Associated Symptoms: nausea <EarnestFaheem - Last Filed: 11/23/17 06:18> <Gustabo Lama - Last Filed: 11/23/17 08:29> - General Chief Complaint: Abdominal Pain Stated Complaint: ABD PAIN Time Seen by Provider: 11/23/17 05:03 - Related Data Home Medications Medication Instructions Recorded Confirmed Bii-Xjlm-Tbgpa Acid 1 cap PO DAILY 06/21/17 11/23/17 [-U Capsule (formulary)] Esomeprazole Magnesium [NexIUM] 20 mg PO DAILY 10/30/17 11/23/17 Levothyroxine Sodium [Synthroid] 75 mcg PO DAILY 10/30/17 11/23/17 Allergies Allergy/AdvReac Type Severity Reaction Status Date / Time No Known Allergies Allergy Verified 11/23/17 04:51 Review of Systems ROS Other: All systems not noted in ROS Statement are negative. Constitutional: Denies: fever, chills Respiratory: Denies: cough, dyspnea Cardiovascular: Denies: chest pain, palpitations, edema, syncope Gastrointestinal: Reports: abdominal pain, nausea. Denies: vomiting, diarrhea, constipation, melena, hematochezia Genitourinary: Reports: other (Trace of dark red vaginal bleeding, which is decreasing since her delivery). Denies: dysuria, frequency, hematuria Musculoskeletal: Denies: back pain Skin: Denies: rash Neurological: Denies: headache <EarnestFaheem - Last Filed: 11/23/17 06:18> ROS Other: All systems not noted in ROS Statement are negative. <Gustabo Lama - Last Filed: 11/23/17 08:29> ROS Statement: Those systems with pertinent positive or pertinent negative responses have been documented in the HPI. Past Medical History Past Medical History: Thyroid Disorder Additional Past Medical History / Comment(s): hypothyroidism. History of Any Multi-Drug Resistant Organisms: None Reported, MRSA Date of last positivie culture/infection: 2009 MDRO Source:: vaginal cyst Past Surgical History: No Surgical Hx Reported Past Anesthesia/Blood Transfusion Reactions: No Reported Reaction Past Psychological History: No Psychological Hx Reported Smoking Status: Former smoker Past Alcohol Use History: None Reported Past Drug Use History: None Reported - Past Family History Mother Family Medical History: No Reported History <Faheem Tinoco Filed: 11/23/17 06:18> General Exam Limitations: no limitations General appearance: alert, in no apparent distress Head exam: Present: atraumatic, normocephalic Eye exam: Present: normal appearance. Absent: scleral icterus, conjunctival injection ENT exam: Present: normal oropharynx Respiratory exam: Present: normal lung sounds bilaterally. Absent: respiratory distress, wheezes, rales, rhonchi, stridor Cardiovascular Exam: Present: regular rate, normal rhythm, normal heart sounds. Absent: systolic murmur, diastolic murmur, rubs, gallop GI/Abdominal exam: Present: soft, tenderness (Mild tenderness in the right upper quadrant and epigastric area, without rebound or guarding), normal bowel sounds. Absent: distended, guarding, rebound, rigid, organomegaly, mass, pulsatile mass, hernia Extremities exam: Present: normal inspection, normal capillary refill. Absent: pedal edema, calf tenderness Back exam: Present: normal inspection. Absent: CVA tenderness (R), CVA tenderness (L) Neurological exam: Present: alert Skin exam: Present: warm, dry, intact, normal color. Absent: rash <Faheem Tinoco Filed: 11/23/17 06:18> Vital Signs 11/23/17 11/23/17 04:48 06:18 Temperature 97.8 F Pulse Rate 90 85 Respiratory 20 16 Rate Blood Pressure 180/105 175/99 O2 Sat by Pulse 98 100 Oximetry Medical Decision Making - Lab Data Result diagrams: 11/23/17 05:20 11/23/17 05:20 - EKG Data -: EKG Interpreted by Wy EKG shows normal: sinus rhythm, axis (Normal), intervals (Normal), QRS complexes (Normal), ST-T waves (Normal) Rate: bradycardia (With sinus arrhythmia, rate 56 bpm) Interpretation: normal EKG <Faheem Tinoco Filed: 11/23/17 06:18> - Lab Data Result diagrams: 11/23/17 05:20 11/23/17 05:20 <Gustabo Lama - Last Filed: 11/23/17 08:29> - Medical Decision Making 27-year-old female presenting with right upper quadrant and epigastric abdominal pain. Patient was previously evaluated by Dr. Tinoco, I received sign out of this patient at shift change. Ultrasound was pending. Ultrasound obtained, does show cholelithiasis with no acute cholecystitis. Patient is reevaluated. She has stable vital signs. She is feeling somewhat better. Patient is very concerned as she has a small baby at home that her symptoms will return. Case is discussed with Dr. Grover, who will accept the patient for cholecystectomy likely tomorrow. Diagnosis: Symptomatic cholelithiasis. (Gustabo Lama) - Lab Data Lab Results 11/23/17 11/23/17 11/23/17 Range/Units 05:20 05:20 05:20 WBC 6.5 (3.8-10.6) k/uL RBC 4.38 (3.80-5.40) m/uL Hgb 10.7 L (11.4-16.0) gm/dL Hct 33.6 L (34.0-46.0) % MCV 76.7 L (80.0-100.0) fL MCH 24.5 L (25.0-35.0) pg MCHC 31.9 (31.0-37.0) g/dL RDW 15.7 H (11.5-15.5) % Plt Count 305 (150-450) k/uL Neutrophils % 43 % Lymphocytes % 44 % Monocytes % 5 % Eosinophils % 5 % Basophils % 1 % Neutrophils # 2.8 (1.3-7.7) k/uL Lymphocytes # 2.9 (1.0-4.8) k/uL Monocytes # 0.4 (0-1.0) k/uL Eosinophils # 0.3 (0-0.7) k/uL Basophils # 0.1 (0-0.2) k/uL Hypochromasia Slight Microcytosis Slight Sodium 137 (137-145) mmol/L Potassium 4.3 (3.5-5.1) mmol/L Chloride 109 H (98-107) mmol/L Carbon Dioxide 21 L (22-30) mmol/L Anion Gap 7 mmol/L BUN 14 (7-17) mg/dL Creatinine 0.70 (0.52-1.04) mg/dL Est GFR (CKD-EPI)AfAm >90 (>60 ml/min/1.73 sqM) Est GFR (CKD-EPI)NonAf >90 (>60 ml/min/1.73 sqM) Glucose 92 (74-99) mg/dL Calcium 9.3 (8.4-10.2) mg/dL Total Bilirubin 0.4 (0.2-1.3) mg/dL AST 31 (14-36) U/L ALT 46 (9-52) U/L Alkaline Phosphatase 67 (38-126) U/L Troponin I <0.012 (0.000-0.034) ng/mL Total Protein 6.6 (6.3-8.2) g/dL Albumin 3.8 (3.5-5.0) g/dL Amylase 41 (30-110) U/L Lipase 92 (23-300) U/L Urine Color Urine Appearance (Clear) Urine pH (5.0-8.0) Ur Specific [place] (1.001-1.035) Urine Protein (Negative) Urine Glucose (UA) (Negative) Urine Ketones (Negative) Urine Blood (Negative) Urine Nitrite (Negative) Urine Bilirubin (Negative) Urine Urobilinogen (<2.0) mg/dL Ur Leukocyte Esterase (Negative) Urine RBC (0-5) /hpf Urine WBC (0-5) /hpf Ur Squamous Epith Cells (0-4) /hpf Urine Mucus (None) /hpf Urine HCG, Qual (Not Detectd) 11/23/17 11/23/17 Range/Units 05:40 05:40 WBC (3.8-10.6) k/uL RBC (3.80-5.40) m/uL Hgb (11.4-16.0) gm/dL Hct (34.0-46.0) % MCV (80.0-100.0) fL MCH (25.0-35.0) pg MCHC (31.0-37.0) g/dL RDW (11.5-15.5) % Plt Count (150-450) k/uL Neutrophils % % Lymphocytes % % Monocytes % % Eosinophils % % Basophils % % Neutrophils # (1.3-7.7) k/uL Lymphocytes # (1.0-4.8) k/uL Monocytes # (0-1.0) k/uL Eosinophils # (0-0.7) k/uL Basophils # (0-0.2) k/uL Hypochromasia Microcytosis Sodium (137-145) mmol/L Potassium (3.5-5.1) mmol/L Chloride (98-107) mmol/L Carbon Dioxide (22-30) mmol/L Anion Gap mmol/L BUN (7-17) mg/dL Creatinine (0.52-1.04) mg/dL Est GFR (CKD-EPI)AfAm (>60 ml/min/1.73 sqM) Est GFR (CKD-EPI)NonAf (>60 ml/min/1.73 sqM) Glucose (74-99) mg/dL Calcium (8.4-10.2) mg/dL Total Bilirubin (0.2-1.3) mg/dL AST (14-36) U/L ALT (9-52) U/L Alkaline Phosphatase (38-126) U/L Troponin I (0.000-0.034) ng/mL Total Protein (6.3-8.2) g/dL Albumin (3.5-5.0) g/dL Amylase (30-110) U/L Lipase (23-300) U/L Urine Color Light Yellow Urine Appearance Cloudy H (Clear) Urine pH 6.5 (5.0-8.0) Ur Specific [place] 1.006 (1.001-1.035) Urine Protein Trace H (Negative) Urine Glucose (UA) Negative (Negative) Urine Ketones Negative (Negative) Urine Blood Large H (Negative) Urine Nitrite Negative (Negative) Urine Bilirubin Negative (Negative) Urine Urobilinogen <2.0 (<2.0) mg/dL Ur Leukocyte Esterase Moderate H (Negative) Urine RBC 7 H (0-5) /hpf Urine WBC 15 H (0-5) /hpf Ur Squamous Epith Cells 2 (0-4) /hpf Urine Mucus Rare H (None) /hpf Urine HCG, Qual Not Detected (Not Detectd) Disposition <Faheem Tinoco - Last Filed: 11/23/17 06:18> Is patient prescribed a controlled substance at d/c from ED?: No Decision to Admit Reason: Admit from EC Decision Date: 11/23/17 Decision Time: 07:45 <Gustabo Lama - Last Filed: 11/23/17 08:29> Clinical Impression: Symptomatic cholelithiasis Disposition: ADMITTED IP TO THIS [facility] Condition: Stable Referrals: None,Stated [Primary Care Provider] - 1-2 days
[2017-11-23 05:29] LABS: Basophils # (A) 0.1 k/uL (0-0.2); Basophils % (A) 1 %; Eosinophils # (A) 0.3 k/uL (0-0.7); Eosinophils % (A) 5 %; HCT 33.6 % (34.0-46.0); HGB 10.7 gm/dL (11.4-16.0); Hypochromasia Slight; Lymphocytes # (A) 2.9 k/uL (1.0-4.8); Lymphocytes % (A) 44 %; MCH 24.5 pg (25.0-35.0); MCHC 31.9 g/dL (31.0-37.0); MCV 76.7 fL (80.0-100.0); Microcytosis Slight; Monocytes # (A) 0.4 k/uL (0-1.0); Monocytes % (A) 5 %; Neutrophils # (A) 2.8 k/uL (1.3-7.7); Neutrophils % (A) 43 %; Platelet Count 305 k/uL (150-450); RBC 4.38 m/uL (3.80-5.40); RDW 15.7 % (11.5-15.5); WBC 6.5 k/uL (3.8-10.6)
[2017-11-23 05:38] LABS: ALT 46 U/L (9-52); AST 31 U/L (14-36); Albumin 3.8 g/dL (3.5-5.0); Alkaline Phosphatase 67 U/L (38-126); Amylase 41 U/L (30-110); Anion Gap 7 mmol/L; Calcium 9.3 mg/dL (8.4-10.2); Carbon Dioxide 21 mmol/L (22-30); Chloride 109 mmol/L (98-107); Glucose 92 mg/dL (74-99); Lipase 92 U/L (23-300); Sodium 137 mmol/L (137-145); Total Bilirubin 0.4 mg/dL (0.2-1.3); Total Protein 6.6 g/dL (6.3-8.2)
[2017-11-23 05:42] LABS: Blood Urea Nitrogen 14 mg/dL (7-17); Potassium 4.3 mmol/L (3.5-5.1)
[2017-11-23 05:53] LABS: Appearance,Urine Cloudy (Clear); Bilirubin,Urine Negative (Negative); Blood,Urine Large (Negative); Color,Urine Light Yellow; Glucose,Urine (UA) Negative (Negative); Ketones,Urine Negative (Negative); Leukocyte Esterase,Urine Moderate (Negative); Mucus,Urine Rare /hpf; Nitrite,Urine Negative (Negative); PH, Urine 6.5 (5.0-8.0); Protein,Urine Trace (Negative); RBC,Urine 7 /hpf (0-5); Specific Gravity,Urine 1.006 (1.001-1.035); Squamous Epithelial Cell,Urine 2 /hpf (0-4); Urobilinogen,Urine <2.0 mg/dL (<2.0); WBC,Urine 15 /hpf (0-5)
[2017-11-23] MEDS ORDERED: MORPHINE SULFATE 4 MG/ML SYRINGE IV STA (06:13)
--- NOTE | 2017-11-23 06:15 | XR ---
EXAMINATION TYPE: XR KUB DATE OF EXAM: 11/23/2017 COMPARISON: NONE HISTORY: Epigastric pain TECHNIQUE: 2 views upright FINDINGS: Bowel gas pattern is normal. There is no sign of intestinal obstruction or pneumoperitoneum . Fecal pattern is normal. There is no evidence of a mass. IMPRESSION: Nonacute abdomen.
[2017-11-23] MEDS ORDERED: HYDROmorphone 1 MG/ML 1 ML SYRINGE IVP STA (06:50)
--- NOTE | 2017-11-23 07:52 | US ---
EXAMINATION TYPE: US abdomen limited DATE OF EXAM: 11/23/2017 COMPARISON: EXAMINATION TYPE: US abdomen limited DATE OF EXAM: 11/23/2017 COMPARISON: NONE CLINICAL HISTORY: Pain, attention RUQ. EC patient with epigastric pain and nausea today EXAM MEASUREMENTS: Liver Length: 17.0 cm Gallbladder Wall: 0.2 cm CBD: 0.2 cm Right Kidney: 11.9 x 5.5 x 4.3 cm Pancreas: wnl Liver: wnl Gallbladder: multiple, mobile, hyperechoic and shadowing stones noted in the dependent portion of th e gallbladder; gallbladder fold noted near fundus Evidence for sonographic Butler's sign: no CBD: wnl Right Kidney: junctional wedge defect noted mid cortex on image #[id number], etc. IMPRESSION: A few small shadowing mobile gallstones without secondary ultrasound evidence for acute c holecystitis. In patient with right upper quadrant and epigastric pain, it cannot be entirely exclude d. Consider HIDA scan evaluation.
[2017-11-23] MEDS ORDERED: ONDANSETRON 4 MG/2 ML VIAL IVP PRN (08:29)
[2017-11-23] MEDS ORDERED: NALOXONE 0.4 MG/ML 1 ML VIAL IV PRN (08:29)
[2017-11-23] MEDS: SODIUM CHLORIDE 0.9% 1,000 ML IV SCH (08:42)
[2017-11-23] MEDS ORDERED: DEXAMETHASONE SOD PHOSPHATE 10 MG/ML 1 ML VIAL IV ONE (15:19)
[2017-11-23] MEDS ORDERED: LIDOCAINE 1% 20 ML VIAL (10MG/ML) FOR IV START INTRADERMA PRN (15:19)
[2017-11-23] MEDS ORDERED: MIDAZOLAM 2 MG/2 ML VIAL IV PRN (15:19)
[2017-11-23] MEDS ORDERED: ONDANSETRON 4 MG/2 ML VIAL IVP ONE (15:19)
--- NOTE | 2017-11-23 15:53 | P.GSHP ---
History of Present Illness H&P Date: 11/23/17 Chief Complaint: Right upper quadrant pain 's is a 19-year-old female who was admitted through the Hospital emergency room with complaints of right quadrant pain. She is workup found have evidence of cholelithiasis. Patient states her pain was a 9 out of 10 last night. Her pain is currently a 2 out of 10. Past Medical History Past Medical History: Thyroid Disorder Additional Past Medical History / Comment(s): Hypothyroidism, post / breast feeding. History of Any Multi-Drug Resistant Organisms: None Reported, MRSA Date of last positivie culture/infection: 2009 MDRO Source:: vaginal cyst Past Surgical History: No Surgical Hx Reported Additional Past Surgical History / Comment(s): Aneta teeth extraction. Past Anesthesia/Blood Transfusion Reactions: No Reported Reaction Smoking Status: Former smoker - Past Family History Mother Family Medical History: No Reported History Additional Family Medical History / Comment(s): Mother is healthy. Father Family Medical History: No Reported History Additional Family Medical History / Comment(s): Father is healthy Medications and Allergies Home Medications Medication Instructions Recorded Confirmed Type Levothyroxine Sodium [Synthroid] 75 mcg PO DAILY 10/30/17 11/23/17 History Benzocaine/Menthol [place] 1 applic TOPICAL DAILY PRN 11/23/17 11/23/17 History [Dermoplast [place]] Ibuprofen [Motrin Ib] 800 mg PO Q6H PRN 11/23/17 11/23/17 History Witch Nano [Tucks Medicated Pads] 1 each TOPICAL DAILY PRN 11/23/17 11/23/17 History Allergies Allergy/AdvReac Type Severity Reaction Status Date / Time No Known Allergies Allergy Verified 11/23/17 08:45 Surgical - Exam Vital Signs Temp Pulse Resp BP Pulse Ox 97.8 F 90 20 180/105 98 11/23/17 04:48 11/23/17 04:48 11/23/17 04:48 11/23/17 04:48 11/23/17 04:48 - General well developed, no distress - Eyes PERRL - ENT normal pinna - Neck no masses - Respiratory normal expansion - Cardiovascular Rhythm: regular - Abdomen Mild epigastric tenderness Abdomen: soft Results - Labs 11/23/17 05:20 11/23/17 05:20 Abnormal Lab Results - Last 24 Hours (Table) 11/23/17 11/23/17 11/23/17 Range/Units 05:20 05:20 05:40 Hgb 10.7 L (11.4-16.0) gm/dL Hct 33.6 L (34.0-46.0) % MCV 76.7 L (80.0-100.0) fL MCH 24.5 L (25.0-35.0) pg RDW 15.7 H (11.5-15.5) % Chloride 109 H (98-107) mmol/L Carbon Dioxide 21 L (22-30) mmol/L Urine Appearance Cloudy H (Clear) Urine Protein Trace H (Negative) Urine Blood Large H (Negative) Ur Leukocyte Esterase Moderate H (Negative) Urine RBC 7 H (0-5) /hpf Urine WBC 15 H (0-5) /hpf Urine Mucus Rare H (None) /hpf Diabetes panel 11/23/17 Range/Units 05:20 Sodium 137 (137-145) mmol/L Potassium 4.3 (3.5-5.1) mmol/L Chloride 109 H (98-107) mmol/L Carbon Dioxide 21 L (22-30) mmol/L BUN 14 (7-17) mg/dL Creatinine 0.70 (0.52-1.04) mg/dL Glucose 92 (74-99) mg/dL Calcium 9.3 (8.4-10.2) mg/dL AST 31 (14-36) U/L ALT 46 (9-52) U/L Alkaline Phosphatase 67 (38-126) U/L Total Protein 6.6 (6.3-8.2) g/dL Albumin 3.8 (3.5-5.0) g/dL Calcium panel 11/23/17 Range/Units 05:20 Calcium 9.3 (8.4-10.2) mg/dL Albumin 3.8 (3.5-5.0) g/dL Pituitary panel 11/23/17 Range/Units 05:20 Sodium 137 (137-145) mmol/L Potassium 4.3 (3.5-5.1) mmol/L Chloride 109 H (98-107) mmol/L Carbon Dioxide 21 L (22-30) mmol/L BUN 14 (7-17) mg/dL Creatinine 0.70 (0.52-1.04) mg/dL Glucose 92 (74-99) mg/dL Calcium 9.3 (8.4-10.2) mg/dL Adrenal panel 11/23/17 Range/Units 05:20 Sodium 137 (137-145) mmol/L Potassium 4.3 (3.5-5.1) mmol/L Chloride 109 H (98-107) mmol/L Carbon Dioxide 21 L (22-30) mmol/L BUN 14 (7-17) mg/dL Creatinine 0.70 (0.52-1.04) mg/dL Glucose 92 (74-99) mg/dL Calcium 9.3 (8.4-10.2) mg/dL Total Bilirubin 0.4 (0.2-1.3) mg/dL AST 31 (14-36) U/L ALT 46 (9-52) U/L Alkaline Phosphatase 67 (38-126) U/L Total Protein 6.6 (6.3-8.2) g/dL Albumin 3.8 (3.5-5.0) g/dL - Imaging US - abdomen: report reviewed (Cholelithiasis) Assessment and Plan Assessment: Cholelithiasis Chronic cholecystitis We will perform laparoscopic ostectomy in the a.m.
[2017-11-23] MEDS: ACETAMINOPHEN TAB 325 MG TAB PO PRN ×2 (17:13→22:26)
[2017-11-23] MEDS: HYDROmorphone 0.5 MG/0.5 ML SYRINGE IVP PRN (20:19)
[2017-11-24] MEDS: ACETAMINOPHEN TAB 325 MG TAB PO PRN (05:59)
[2017-11-24] MEDS: HYDROmorphone 0.5 MG/0.5 ML SYRINGE IVP PRN ×4 (05:59→23:33)
[2017-11-24] MEDS: SODIUM CHLORIDE 0.9% 1,000 ML IV SCH (07:29)
[2017-11-24] MEDS: LACTATED RINGERS 1,000 ML IV SCH ×2 (10:16→16:30)
[2017-11-24] MEDS ORDERED: IV FLUID CONTINUATION 1,000 ML IV ONE (12:28)
[2017-11-24] MEDS ORDERED: ceFAZolin 2,000 MG in DEXTROSE/WATER 1 50ML.BAG IVPB STA (12:49)
[2017-11-24] MEDS ORDERED: HEPARIN SODIUM,PORCINE 5,000 UNIT/ML 1 ML VIAL SQ ONE (12:50)
[2017-11-24] MEDS ORDERED: ceFAZolin IN SWFI 2 GM/20 ML SYRINGE IVP STA (12:53)
[2017-11-24] MEDS ORDERED: MIDAZOLAM 2 MG/2 ML VIAL ONE (13:11)
[2017-11-24] MEDS ORDERED: SUCCINYLCHOLINE CHLORIDE 100 MG/5 ML SYR IV ONE (13:11)
[2017-11-24] MEDS ORDERED: LIDOCAINE 1% INJ 10MG/ML (20 ML MDV) ONE (13:11)
[2017-11-24] MEDS ORDERED: fentaNYL (PF) 50 MCG/ML 2 ML AMP ONE (13:11)
[2017-11-24] MEDS ORDERED: KETOROLAC 30 MG/ML 1 ML VIAL ONE (13:11)
[2017-11-24] MEDS ORDERED: PROPOFOL 10 MG/ML 20 ML VIAL IV ONE (13:11)
[2017-11-24] MEDS ORDERED: GLYCOPYRROLATE 0.2 MG/ML 2 ML VIAL ONE (13:11)
[2017-11-24] MEDS ORDERED: HYDROmorphone (PF) 1 MG/ML ONE (13:11)
[2017-11-24] MEDS ORDERED: NEOSTIGMINE 1 MG/ML 10 ML VIAL ONE (13:11)
[2017-11-24] MEDS ORDERED: ROCURONIUM BROMIDE 10 MG/ML 10 ML VIAL IV ONE (13:11)
[2017-11-24] MEDS ORDERED: SODIUM CHLORIDE 0.9% 100 ML with ceFAZolin 2,000 MG IV ONE ×2 (13:15)
[2017-11-24] MEDS ORDERED: BUPIVACAIN-EPI 0.5%-1:200,000 30 ML VIAL SQ ONE (13:43)
--- NOTE | 2017-11-24 14:21 | P.OP ---
Date of Procedure: 11/24/17 Preoperative Diagnosis: Cholecystitis Cholelithiasis Postoperative Diagnosis: Cholecystitis Cholelithiasis Procedure(s) Performed: Laparoscopic cholecystectomy Anesthesia: CHICO Surgeon: Alex Grover Estimated Blood Loss (ml): 5 Pathology: other (Gallbladder) Condition: stable Disposition: PACU Description of Procedure: The patient was placed on the operating table. The patient received a general endotracheal tube anesthesia. The patients abdomen was prepped and draped in the usual sterile fashion. Through an infraumbilical stab incision, the fascia of the anterior abdominal wall was grasped with a pair of Kochers and then the Veress needle was placed in the peritoneal cavity. Position of the Veress needle was confirmed with positive drop test. The abdomen was then insufflated. After adequate insufflation, the 10 mm trocar was placed in the peritoneal cavity. Following this the laparoscope was placed in the peritoneal cavity. The patient was placed in the head-up, right side up position and then a 5 mm trocar was placed in the right lateral and right subcostal position under direct visualization. A 8 mm trocar was placed in the epigastric position. The gallbladder was grasped in the fundus and infundibulum. Traction on the gallbladder was placed in the lateral and the cephalad positions. The triangle of Calot was visualized.. The cystic duct was bluntly dissected until the union of the cystic duct and common bile duct was seen. The cystic duct was then divided and sealed with the Harmonic scissors. A PDS Endoloop was then placed throughout the cystic duct stump. The cystic artery divided and sealed with the Harmonic scissors. The gallbladder was then removed from the liver bed using Harmonic scissors. The gallbladder was then extracted through the epigastric port site. Operative field was checked for any bleeding spots and Harmonic scissors was used to coagulate the liver bed. The abdomen was irrigated. The trocars were removed. The skin was closed using interrupted 3-0 Vicryl suture. Dermabond dressing were applied. The patient tolerated the procedure well.
[2017-11-24] MEDS ORDERED: LACTATED RINGERS 1,000 ML IV ONE ×2 (14:39)
[2017-11-24] MEDS: HYDROmorphone 1 MG/ML 1 ML SYRINGE IVP ONE ×2 (14:50→14:55)
[2017-11-24] MEDS: fentaNYL (PF) 50 MCG/ML 2 ML AMP IV ONE ×2 (15:14→15:19)
[2017-11-24 23:49] VITALS: RESP 18
[2017-11-25] MEDS: SODIUM CHLORIDE 0.9% 1,000 ML IV SCH (01:44)
[2017-11-25] MEDS: HYDROmorphone 0.5 MG/0.5 ML SYRINGE IVP PRN ×2 (02:34→06:01)
[2017-11-25 07:36] VITALS: BP 143/81; PULSE 80; TEMP 98.7
[2017-11-25] MEDS ORDERED: HYDROcodone/APAP 5-325MG 1 EACH TAB PO PRN (07:47)
--- NOTE | 2017-11-25 09:59 | P.DS ---
Providers Date of admission: 11/23/17 08:29 Expected date of discharge: 11/25/17 Attending physician: Alex Grover Primary care physician: Stated None Hospital Course: 27-year-old female presented to the emergency room with a chief complaint of developing right upper quadrant abdominal pain. Workup showed evidence of acute cholelithiasis. Patient underwent laparoscopic cholecystectomy for cholecystitis cholelithiasis. On November 24 There were no postop events. Abdominal surgical dressing sites dry. Tolerating diet pain medication effective for pain control patient was felt to be appropriate to discharge Impression discharge diagnosis Present on admission right upper quadrant pain suspect due to cholelithiasis Status post November 24 laparoscopic cholecystectomy for cholelithiasis cholecystitis Chronic cholecystitis The above impression and plan of care have been discussed and directed by signing physician. Chasidy Hayes nurse practitioner acting as scribe for signing physician. Patient Condition at Discharge: Stable Plan - Discharge Summary Discharge Rx Participant: No New Discharge Prescriptions: New Docusate [Colace] 100 mg PO BID #20 capsule HYDROcodone/APAP 7.5-325MG [[place] 7.5-325] 1 tab PO Q4H PRN 3 Days #18 tab PRN Reason: Pain HYDROcodone/APAP 5-325MG [[place] 5-325] 1 each PO Q4HR PRN #18 tab PRN Reason: MODERATE Pain Continue Levothyroxine Sodium [Synthroid] 75 mcg PO DAILY Ibuprofen [Motrin Ib] 800 mg PO Q6H PRN PRN Reason: Pain Or Fever > 100.5 Witch Nano [Tucks Medicated Pads] 1 each TOPICAL DAILY PRN PRN Reason: Hemorrhoids Benzocaine/Menthol [place] [Dermoplast [place]] 1 applic TOPICAL DAILY PRN PRN Reason: Pain Discharge Medication List Levothyroxine Sodium [Synthroid] 75 mcg PO DAILY 10/30/17 [History] Benzocaine/Menthol [place] [Dermoplast [place]] 1 applic TOPICAL DAILY PRN 11/23/17 [History] Ibuprofen [Motrin Ib] 800 mg PO Q6H PRN 11/23/17 [History] Witch Nano [Tucks Medicated Pads] 1 each TOPICAL DAILY PRN 11/23/17 [History] Docusate [Colace] 100 mg PO BID #20 capsule 11/24/17 [Rx] HYDROcodone/APAP 7.5-325MG [[place] 7.5-325] 1 tab PO Q4H PRN 3 Days #18 tab 11/24 [Rx] HYDROcodone/APAP 5-325MG [[place] 5-325] 1 each PO Q4HR PRN #18 tab 11/25/17 [Rx] Follow up Appointment(s)/Referral(s): None,Stated [Primary Care Provider] - 1-2 days (Patient states that she will find a primary physician) Alex Grover MD [STAFF PHYSICIAN] - 12/01/17 8:15 am Patient Instructions/Handouts: *Surgery [facility] - ([facility]) Laparoscopic Cholecystectomy, Hydrocodone/Acetaminophen (By mouth), Laxative, Stool Softeners (By mouth) Discharge Disposition: HOME SELF-CARE
== END 2017-11-25 10:20 | disposition home or self-care (01) | DRG 419 ==
LOC: EC 04:42 → 5MS5E 08:29 → 5ONC 12:34
PROVIDERS: ADMIT Surgery; ATTEND Surgery
PROC: 0FT44ZZ Resection of Gallbladder, Percutaneous Endoscopic Approach (ICD-10-PCS; principal; 2017-11-23)
DX: K80.10 Calculus of gallbladder with chronic cholecystitis without obstruction (principal); E03.9 Hypothyroidism, unspecified; Z87.891 Personal history of nicotine dependence; Z79.1 Long term (current) use of non-steroidal anti-inflammatories (NSAID); Z79.890 Hormone replacement therapy; Z79.899 Other long term (current) drug therapy
CPT/HCPCS: 36415; 74018; 76705; 80053; 81001; 81025; 82150; 83690; 84484; 85025; 88304; 93005; 96374; 99285

== ENCOUNTER 2018-07-19 07:42 | Emergency (ER) | payer OTHER ==
[2018-07-19 07:54] VITALS: BP 142/91; PULSE 90; RESP 18; TEMP 98.1
[2018-07-19] MEDS ORDERED: SODIUM CHLORIDE 0.9% 2,000 ML IV STA (07:56)
[2018-07-19] MEDS ORDERED: ONDANSETRON 4 MG/2 ML VIAL IVP STA (08:17)
[2018-07-19] MEDS ORDERED: DICYCLOMINE 20 MG TAB PO STA (08:17)
--- NOTE | 2018-07-19 08:31 | ED ---
Abdominal Pain HPI - General Chief Complaint: Abdominal Pain Stated Complaint: nausea/diarrhea Time Seen by Provider: 07/19/18 07:54 Source: patient, RN notes reviewed Mode of arrival: ambulatory Limitations: no limitations - History of Present Illness Initial Comments: 28-year-old female sent emergency Department with chief complaint of nausea, diarrhea and abdominal discomfort last 3-4 days. Patient states that she's had some slight abdominal cramping which led to nausea and persistent diarrhea. She states is watery loose. Denies any melena or hematochezia. Denies any recent traveling no recent antibiotic use no history of GI disorders. Denies any contacts with some her symptoms. Patient denies any recent fevers or chills no dysuria no hematuria denies any chance . Patient is concerned that she may be dehydrated. - Related Data Previous Rx's Medication Instructions Recorded Ciprofloxacin HCl [Cipro] 500 mg PO Q12HR #10 tablet 07/19/18 Allergies Allergy/AdvReac Type Severity Reaction Status Date / Time No Known Allergies Allergy Verified 07/19/18 08:19 Review of Systems ROS Statement: Those systems with pertinent positive or pertinent negative responses have been documented in the HPI. ROS Other: All systems not noted in ROS Statement are negative. Past Medical History Past Medical History: Thyroid Disorder Additional Past Medical History / Comment(s): Hypothyroidism, post /breast feeding. History of Any Multi-Drug Resistant Organisms: None Reported, MRSA Date of last positivie culture/infection: 2009 MDRO Source:: vaginal cyst Past Surgical History: Cholecystectomy Additional Past Surgical History / Comment(s): [place] teeth extraction. Past Anesthesia/Blood Transfusion Reactions: No Reported Reaction Past Psychological History: No Psychological Hx Reported Smoking Status: Current every day smoker Past Alcohol Use History: None Reported Past Drug Use History: None Reported - Past Family History Mother Family Medical History: No Reported History Additional Family Medical History / Comment(s): Mother is healthy. Father Family Medical History: No Reported History Additional Family Medical History / Comment(s): Father is healthy General Exam Limitations: no limitations General appearance: alert, in no apparent distress Head exam: Present: atraumatic, normocephalic, normal inspection ENT exam: Present: mucous membranes moist Respiratory exam: Present: normal lung sounds bilaterally. Absent: respiratory distress, wheezes, rales, rhonchi, stridor Cardiovascular Exam: Present: regular rate, normal rhythm, normal heart sounds. Absent: systolic murmur, diastolic murmur, rubs, gallop, clicks GI/Abdominal exam: Present: soft, tenderness (Mild epigastric), normal bowel sounds. Absent: distended, guarding, rebound, rigid Back exam: Absent: CVA tenderness (R), CVA tenderness (L) Skin exam: Present: warm, dry, intact, normal color. Absent: rash Course Vital Signs 07/19/18 07:51 Temperature 98.1 F Pulse Rate 90 Respiratory 18 Rate Blood Pressure 142/91 O2 Sat by Pulse 98 Oximetry Medical Decision Making - Medical Decision Making 28-year-old female presented for diarrhea, consider dehydration. Patient lab work, IV hydration and feels improved. Patient's found to have urinary tract infection. Patient we discharged on antibiotics advised to take [id number] Pepto-Bismol increase fluid hydration. - Lab Data Result diagrams: 07/19/18 08:20 07/19/18 08:20 Lab Results 07/19/18 07/19/18 07/19/18 Range/Units 08:20 08:20 08:20 WBC 8.2 (3.8-10.6) k/uL RBC 4.66 (3.80-5.40) m/uL Hgb 12.2 (11.4-16.0) gm/dL Hct 37.3 (34.0-46.0) % MCV 80.2 (80.0-100.0) fL MCH 26.2 (25.0-35.0) pg MCHC 32.6 (31.0-37.0) g/dL RDW 15.2 (11.5-15.5) % Plt Count 347 (150-450) k/uL Neutrophils % 62 % Lymphocytes % 30 % Monocytes % 4 % Eosinophils % 2 % Basophils % 1 % Neutrophils # 5.1 (1.3-7.7) k/uL Lymphocytes # 2.4 (1.0-4.8) k/uL Monocytes # 0.3 (0-1.0) k/uL Eosinophils # 0.1 (0-0.7) k/uL Basophils # 0.1 (0-0.2) k/uL Hypochromasia Slight Sodium 140 (137-145) mmol/L Potassium 4.2 (3.5-5.1) mmol/L Chloride 111 H (98-107) mmol/L Carbon Dioxide 21 L (22-30) mmol/L Anion Gap 8 mmol/L BUN 6 L (7-17) mg/dL Creatinine 0.54 (0.52-1.04) mg/dL Est GFR (CKD-EPI)AfAm >90 (>60 ml/min/1.73 sqM) Est GFR (CKD-EPI)NonAf >90 (>60 ml/min/1.73 sqM) Glucose 91 (74-99) mg/dL Calcium 9.2 (8.4-10.2) mg/dL Total Bilirubin 0.3 (0.2-1.3) mg/dL AST 26 (14-36) U/L ALT 83 H (9-52) U/L Alkaline Phosphatase 63 (38-126) U/L Total Protein 7.1 (6.3-8.2) g/dL Albumin 4.3 (3.5-5.0) g/dL Amylase 31 (30-110) U/L Lipase 54 (23-300) U/L Urine Color Urine Appearance (Clear) Urine pH (5.0-8.0) Ur Specific [place] (1.001-1.035) Urine Protein (Negative) Urine Glucose (UA) (Negative) Urine Ketones (Negative) Urine Blood (Negative) Urine Nitrite (Negative) Urine Bilirubin (Negative) Urine Urobilinogen (<2.0) mg/dL Ur Leukocyte Esterase (Negative) Urine RBC (0-5) /hpf Urine WBC (0-5) /hpf Ur Squamous Epith Cells (0-4) /hpf Urine Bacteria (None) /hpf Urine Mucus (None) /hpf Urine HCG, Qual Not Detected (Not Detectd) 07/19/18 Range/Units 08:20 WBC (3.8-10.6) k/uL RBC (3.80-5.40) m/uL Hgb (11.4-16.0) gm/dL Hct (34.0-46.0) % MCV (80.0-100.0) fL MCH (25.0-35.0) pg MCHC (31.0-37.0) g/dL RDW (11.5-15.5) % Plt Count (150-450) k/uL Neutrophils % % Lymphocytes % % Monocytes % % Eosinophils % % Basophils % % Neutrophils # (1.3-7.7) k/uL Lymphocytes # (1.0-4.8) k/uL Monocytes # (0-1.0) k/uL Eosinophils # (0-0.7) k/uL Basophils # (0-0.2) k/uL Hypochromasia Sodium (137-145) mmol/L Potassium (3.5-5.1) mmol/L Chloride (98-107) mmol/L Carbon Dioxide (22-30) mmol/L Anion Gap mmol/L BUN (7-17) mg/dL Creatinine (0.52-1.04) mg/dL Est GFR (CKD-EPI)AfAm (>60 ml/min/1.73 sqM) Est GFR (CKD-EPI)NonAf (>60 ml/min/1.73 sqM) Glucose (74-99) mg/dL Calcium (8.4-10.2) mg/dL Total Bilirubin (0.2-1.3) mg/dL AST (14-36) U/L ALT (9-52) U/L Alkaline Phosphatase (38-126) U/L Total Protein (6.3-8.2) g/dL Albumin (3.5-5.0) g/dL Amylase (30-110) U/L Lipase (23-300) U/L Urine Color Light Yellow Urine Appearance Cloudy H (Clear) Urine pH 5.5 (5.0-8.0) Ur Specific [place] 1.007 (1.001-1.035) Urine Protein Negative (Negative) Urine Glucose (UA) Negative (Negative) Urine Ketones Negative (Negative) Urine Blood Negative (Negative) Urine Nitrite Negative (Negative) Urine Bilirubin Negative (Negative) Urine Urobilinogen <2.0 (<2.0) mg/dL Ur Leukocyte Esterase Large H (Negative) Urine RBC 8 H (0-5) /hpf Urine WBC 36 H (0-5) /hpf Ur Squamous Epith Cells 9 H (0-4) /hpf Urine Bacteria Few H (None) /hpf Urine Mucus Rare H (None) /hpf Urine HCG, Qual (Not Detectd) Disposition Clinical Impression: Diarrhea, UTI (urinary tract infection) Disposition: HOME SELF-CARE Condition: Stable Instructions (If sedation given, give patient instructions): Urinary Tract Infection in Women (ED), Acute Diarrhea (ED) Additional Instructions: Please return to the Emergency Department if symptoms worsen or any other concerns. Prescriptions: Ciprofloxacin HCl [Cipro] 500 mg PO Q12HR #10 tablet Is patient prescribed a controlled substance at d/c from ED?: No Referrals: None,Stated [REFERRING] - 1-2 days Time of Disposition: 09:38
[2018-07-19 08:39] LABS: Basophils # (A) 0.1 k/uL (0-0.2); Basophils % (A) 1 %; Eosinophils # (A) 0.1 k/uL (0-0.7); Eosinophils % (A) 2 %; HCT 37.3 % (34.0-46.0); HGB 12.2 gm/dL (11.4-16.0); Hypochromasia Slight; Lymphocytes # (A) 2.4 k/uL (1.0-4.8); Lymphocytes % (A) 30 %; MCH 26.2 pg (25.0-35.0); MCHC 32.6 g/dL (31.0-37.0); MCV 80.2 fL (80.0-100.0); Mean Platelet Volume 6.4; Monocytes # (A) 0.3 k/uL (0-1.0); Monocytes % (A) 4 %; Neutrophils # (A) 5.1 k/uL (1.3-7.7); Neutrophils % (A) 62 %; Platelet Count 347 k/uL (150-450); RBC 4.66 m/uL (3.80-5.40); RDW 15.2 % (11.5-15.5); WBC 8.2 k/uL (3.8-10.6)
[2018-07-19 08:42] LABS: Appearance,Urine Cloudy (Clear); Bacteria,Urine Few /hpf; Bilirubin,Urine Negative (Negative); Blood,Urine Negative (Negative); Color,Urine Light Yellow; Glucose,Urine (UA) Negative (Negative); Ketones,Urine Negative (Negative); Leukocyte Esterase,Urine Large (Negative); Mucus,Urine Rare /hpf; Nitrite,Urine Negative (Negative); PH, Urine 5.5 (5.0-8.0); Protein,Urine Negative (Negative); RBC,Urine 8 /hpf (0-5); Specific Gravity,Urine 1.007 (1.001-1.035); Squamous Epithelial Cell,Urine 9 /hpf (0-4); Urobilinogen,Urine <2.0 mg/dL (<2.0)
[2018-07-19 08:53] LABS: ALT 83 U/L (9-52); AST 26 U/L (14-36); Albumin 4.3 g/dL (3.5-5.0); Alkaline Phosphatase 63 U/L (38-126); Amylase 31 U/L (30-110); Anion Gap 8 mmol/L; Blood Urea Nitrogen 6 mg/dL (7-17); Calcium 9.2 mg/dL (8.4-10.2); Carbon Dioxide 21 mmol/L (22-30); Chloride 111 mmol/L (98-107); Glucose 91 mg/dL (74-99); Lipase 54 U/L (23-300); Potassium 4.2 mmol/L (3.5-5.1); Sodium 140 mmol/L (137-145); Total Bilirubin 0.3 mg/dL (0.2-1.3); Total Protein 7.1 g/dL (6.3-8.2)
== END 2018-07-19 09:58 | disposition home or self-care (01) ==
LOC: EC 07:42
DX: N39.0 Urinary tract infection, site not specified (principal); R19.7 Diarrhea, unspecified; R10.13 Epigastric pain; R11.0 Nausea; F17.200 Nicotine dependence, unspecified, uncomplicated; Z86.14 Personal history of Methicillin resistant Staphylococcus aureus infection; Z90.49 Acquired absence of other specified parts of digestive tract
CPT/HCPCS: 36415; 80053; 82150; 83690; 85025; 81001; 81025; 87086; 99284; 96374; 96361; J2405

== ENCOUNTER 2019-05-14 19:07 | Emergency (ER) | payer OTHER ==
[2019-05-14] MEDS ORDERED: IBUPROFEN 600 MG TAB PO STA (19:27)
[2019-05-14] MEDS ORDERED: ACETAMINOPHEN TAB 500 MG TAB PO STA (19:27)
[2019-05-14] MEDS ORDERED: SODIUM CHLORIDE 0.9% 500 ML 500 ML IV ONE (19:27)
[2019-05-14] MEDS ORDERED: SODIUM CHLORIDE 0.9% 1,000 ML IV ONE (19:27)
[2019-05-14] MEDS ORDERED: DEXAMETHASONE SOD PHOSPHATE 10 MG/ML 1 ML VIAL IV STA (19:28)
[2019-05-14] MEDS ORDERED: IPRATROPIUM-ALBUTEROL 3 ML NEB INHALATION STA (19:28)
[2019-05-14] MEDS ORDERED: guaiFENesin-Coden 100-10MG/5ML 10 ML CUP PO STA (19:31)
--- NOTE | 2019-05-14 19:33 | ED ---
General Adult HPI - General Chief complaint: Shortness of Breath Stated complaint: HERMILO-Flu Time Seen by Provider: 05/14/19 19:15 Source: patient Mode of arrival: ambulatory Limitations: no limitations - History of Present Illness Initial comments: 29-year-old female patient presents to the emergency department today for evaluation of shortness of breath. Patient states she was diagnosed with influenza on Thursday. Patient say she did start Tamiflu. Patient states today she is feeling worse. States she is having shortness of breath and increased cough. States that she is having hot and cold chills and has a headache. States that she has been dizzy. Patient reports hemoptysis a couple of days ago. Patient states she had streaking in her nasal secretions but also had some dark red blood coming up in her cough. Patient states she did take Tylenol last at 12:00. Denies any other medications for her symptoms. She denies any chance of . Patient denies any recent rash, chest pain, abdominal pain, vomiting, diarrhea, constipation, back pain, numbness, tingling, hematuria, dysuria, urinary urgency, urinary frequency, visual changes, or any other complaints. - Related Data Previous Rx's Medication Instructions Recorded Ciprofloxacin HCl [Cipro] 500 mg PO Q12HR #10 tablet 07/19/18 Albuterol Sulfate [Proair Hfa] 1 - 2 puff INHALATION Q6HR PRN #1 05/14/19 inhaler guaiFENesin-DM 600/30MG [Mucinex 2 each PO Q12HR PRN #20 tab.er.12h 05/14/19 Dm] Allergies Allergy/AdvReac Type Severity Reaction Status Date / Time No Known Allergies Allergy Verified 05/14/19 19:14 Review of Systems ROS Statement: Those systems with pertinent positive or pertinent negative responses have been documented in the HPI. ROS Other: All systems not noted in ROS Statement are negative. Past Medical History Past Medical History: Thyroid Disorder Additional Past Medical History / Comment(s): Hypothyroidism, post /breast feeding. History of Any Multi-Drug Resistant Organisms: None Reported, MRSA Date of last positivie culture/infection: 2009 MDRO Source:: vaginal cyst Past Surgical History: Cholecystectomy Additional Past Surgical History / Comment(s): [place] teeth extraction. Past Anesthesia/Blood Transfusion Reactions: No Reported Reaction Past Psychological History: No Psychological Hx Reported Smoking Status: Former smoker Past Alcohol Use History: Occasional Past Drug Use History: None Reported - Past Family History Mother Family Medical History: No Reported History Additional Family Medical History / Comment(s): Mother is healthy. Father Family Medical History: No Reported History Additional Family Medical History / Comment(s): Father is healthy General Exam Limitations: no limitations General appearance: alert, in no apparent distress, other (This is a well- developed, well-nourished adult female patient in no acute distress. Vital signs upon presentation are temperature 102.9F, pulse 153, respirations 30, blood pressure 112/81, pulse ox 96% on room air.) Eye exam: Present: normal appearance, PERRL, EOMI. Absent: scleral icterus, conjunctival injection, periorbital swelling ENT exam: Present: mucous membranes moist, TM's normal bilaterally (Pearly with no effusion). Absent: normal oropharynx (Pharyngeal erythema, tonsillar hypertrophy) Neck exam: Present: normal inspection. Absent: tenderness, meningismus, lymphadenopathy Respiratory exam: Present: normal lung sounds bilaterally, other (Tachypnea). Absent: respiratory distress, wheezes, rales, rhonchi, stridor Cardiovascular Exam: Present: normal rhythm, tachycardia, normal heart sounds. Absent: systolic murmur, diastolic murmur, rubs, gallop, clicks GI/Abdominal exam: Present: soft, normal bowel sounds. Absent: distended, tenderness, guarding, rebound, rigid Neurological exam: Present: alert, oriented X3, CN II-XII intact Psychiatric exam: Present: normal affect, normal mood Skin exam: Present: warm, dry, intact, normal color. Absent: rash Course Vital Signs 05/14/19 05/14/19 05/14/19 19:09 19:51 19:59 Temperature 102.9 F H Pulse Rate 153 H 118 H 140 H Respiratory 30 H Rate Blood Pressure 112/81 O2 Sat by Pulse 96 Oximetry 05/14/19 05/14/19 21:13 22:44 Temperature 99 F 98.4 F Pulse Rate 112 H 99 Respiratory 19 18 Rate Blood Pressure 115/68 113/66 O2 Sat by Pulse 98 98 Oximetry Medical Decision Making - Medical Decision Making 29-year-old female patient presents to the emergency department today for evaluation of upper respiratory symptoms, shortness of breath, and dizziness. Physical examination did reveal pharyngeal erythema and tonsillar hypertrophy. She was tachycardiac with an initial rate of 153. She was also febrile with a temperature of 102.9. Lungs are clear to auscultation with good air movement. We did insert an IV, reviewed labs which showed an elevated lactic acid at 2.2. Was positive for influenza B. Chest x-ray showed no acute cardiopulmonary process. Patient was given IV fluids, cough medication, and breathing treatment. Upon reevaluation she states her breathing is mildly improved. Vital signs did improved. She is already taking Tamiflu prescribed by virtual doctor. She will be discharged this time with Mucinex DM and a Pro Air inhaler. She is educated regarding fever management utilizing Tylenol and Motrin. She is instructed to follow-up with her primary care physician for recheck in 1-2 days. Return parameters were discussed in detail. She verbalizes understanding and agrees with this plan. - Lab Data Result diagrams: 05/14/19 19:52 05/14/19 19:52 Lab Results 05/14/19 05/14/19 05/14/19 Range/Units 19:52 19:52 19:52 WBC 5.7 (3.8-10.6) k/uL RBC 5.01 (3.80-5.40) m/uL Hgb 13.6 (11.4-16.0) gm/dL Hct 41.6 (34.0-46.0) % MCV 83.0 (80.0-100.0) fL MCH 27.2 (25.0-35.0) pg MCHC 32.8 (31.0-37.0) g/dL RDW 14.4 (11.5-15.5) % Plt Count 195 (150-450) k/uL Neutrophils % 59 % Lymphocytes % 29 % Monocytes % 5 % Eosinophils % 1 % Basophils % 3 % Neutrophils # 3.4 (1.3-7.7) k/uL Lymphocytes # 1.7 (1.0-4.8) k/uL Monocytes # 0.3 (0-1.0) k/uL Eosinophils # 0.0 (0-0.7) k/uL Basophils # 0.2 (0-0.2) k/uL Sodium 137 (137-145) mmol/L Potassium 3.8 (3.5-5.1) mmol/L Chloride 103 (98-107) mmol/L Carbon Dioxide 22 (22-30) mmol/L Anion Gap 12 mmol/L BUN 10 (7-17) mg/dL Creatinine 0.68 (0.52-1.04) mg/dL Est GFR (CKD-EPI)AfAm >90 (>60 ml/min/1.73 sqM) Est GFR (CKD-EPI)NonAf >90 (>60 ml/min/1.73 sqM) Glucose 115 H (74-99) mg/dL Plasma Lactic Acid Tim 2.2 H* (0.7-2.0) mmol/L Calcium 9.3 (8.4-10.2) mg/dL Total Bilirubin 0.3 (0.2-1.3) mg/dL AST 26 (14-36) U/L ALT 20 (4-34) U/L Alkaline Phosphatase 44 (38-126) U/L Total Protein 7.8 (6.3-8.2) g/dL Albumin 4.4 (3.5-5.0) g/dL Influenza Type A RNA (Not Detectd) Influenza Type B (PCR) (Not Detectd) Group A Strep Rapid (Negative) 05/14/19 05/14/19 Range/Units 19:54 20:03 WBC (3.8-10.6) k/uL RBC (3.80-5.40) m/uL Hgb (11.4-16.0) gm/dL Hct (34.0-46.0) % MCV (80.0-100.0) fL MCH (25.0-35.0) pg MCHC (31.0-37.0) g/dL RDW (11.5-15.5) % Plt Count (150-450) k/uL Neutrophils % % Lymphocytes % % Monocytes % % Eosinophils % % Basophils % % Neutrophils # (1.3-7.7) k/uL Lymphocytes # (1.0-4.8) k/uL Monocytes # (0-1.0) k/uL Eosinophils # (0-0.7) k/uL Basophils # (0-0.2) k/uL Sodium (137-145) mmol/L Potassium (3.5-5.1) mmol/L Chloride (98-107) mmol/L Carbon Dioxide (22-30) mmol/L Anion Gap mmol/L BUN (7-17) mg/dL Creatinine (0.52-1.04) mg/dL Est GFR (CKD-EPI)AfAm (>60 ml/min/1.73 sqM) Est GFR (CKD-EPI)NonAf (>60 ml/min/1.73 sqM) Glucose (74-99) mg/dL Plasma Lactic Acid Tim (0.7-2.0) mmol/L Calcium (8.4-10.2) mg/dL Total Bilirubin (0.2-1.3) mg/dL AST (14-36) U/L ALT (4-34) U/L Alkaline Phosphatase (38-126) U/L Total Protein (6.3-8.2) g/dL Albumin (3.5-5.0) g/dL Influenza Type A RNA Not Detected (Not Detectd) Influenza Type B (PCR) Detected H (Not Detectd) Group A Strep Rapid Negative (Negative) - Radiology Data Radiology results: report reviewed, image reviewed Two-view x-ray of the chest is obtained. Report was reviewed in its entirety. Impression by Dr. Taylor shows normal chest. Disposition Clinical Impression: Influenza B Disposition: HOME SELF-CARE Condition: Good Instructions (If sedation given, give patient instructions): Influenza (ED) Additional Instructions: Increase fluids. Take medications as directed. Complete Tamiflu prescription. Follow-up with your primary care physician for recheck in 1-2 days. Return to the emergency department immediately for any new, worsening, or concerning symptoms. Prescriptions: guaiFENesin-DM 600/30MG [Mucinex Dm] 2 each PO Q12HR PRN #20 tab.er.12h PRN Reason: Cough Albuterol Sulfate [Proair Hfa] 1 - 2 puff INHALATION Q6HR PRN #1 inhaler PRN Reason: Shortness Of Breath Is patient prescribed a controlled substance at d/c from ED?: No Referrals: Mamta Anderson MD [Primary Care Provider] - 1-2 days Time of Disposition: 21:47
--- NOTE | 2019-05-14 20:30 | XR ---
EXAMINATION TYPE: XR chest 2V DATE OF EXAM: 05/14/2019 COMPARISON: NONE HISTORY: Cough and fever TECHNIQUE: 2 views FINDINGS: Heart and mediastinum are normal. Lungs are clear. Diaphragm is normal. Bony thorax appears normal. IMPRESSION: Normal chest.
[2019-05-14 20:44] LABS: Basophils # (A) 0.2 k/uL (0-0.2); Basophils % (A) 3 %; Eosinophils % (A) 1 %; HCT 41.6 % (34.0-46.0); HGB 13.6 gm/dL (11.4-16.0); Lymphocytes # (A) 1.7 k/uL (1.0-4.8); Lymphocytes % (A) 29 %; MCH 27.2 pg (25.0-35.0); MCHC 32.8 g/dL (31.0-37.0); Mean Platelet Volume 7.1; Monocytes # (A) 0.3 k/uL (0-1.0); Monocytes % (A) 5 %; Neutrophils # (A) 3.4 k/uL (1.3-7.7); Neutrophils % (A) 59 %; Platelet Count 195 k/uL (150-450); RBC 5.01 m/uL (3.80-5.40); RDW 14.4 % (11.5-15.5); WBC 5.7 k/uL (3.8-10.6)
[2019-05-14 21:15] LABS: ALT 20 U/L (4-34); AST 26 U/L (14-36); African American GFR (CKD) >90 (>60 ml/min/1.73 sqM); Albumin 4.4 g/dL (3.5-5.0); Alkaline Phosphatase 44 U/L (38-126); Anion Gap 12 mmol/L; Blood Urea Nitrogen 10 mg/dL (7-17); Calcium 9.3 mg/dL (8.4-10.2); Carbon Dioxide 22 mmol/L (22-30); Chloride 103 mmol/L (98-107); Glucose 115 mg/dL (74-99); Non-African American GFR(CKD) >90 (>60 ml/min/1.73 sqM); Potassium 3.8 mmol/L (3.5-5.1); Sodium 137 mmol/L (137-145); Total Bilirubin 0.3 mg/dL (0.2-1.3); Total Protein 7.8 g/dL (6.3-8.2)
[2019-05-14 22:45] VITALS: BP 113/66; PULSE 99; RESP 18; TEMP 98.4
== END 2019-05-14 22:45 | disposition home or self-care (01) ==
LOC: EC 19:07
DX: J10.1 Influenza due to other identified influenza virus with other respiratory manifestations (principal); R00.0 Tachycardia, unspecified; R74.0 Nonspecific elevation of levels of transaminase and lactic acid dehydrogenase [LDH]; Z87.891 Personal history of nicotine dependence; Z86.14 Personal history of Methicillin resistant Staphylococcus aureus infection
CPT/HCPCS: 99285 ×2; 96374 ×2; 96361 ×2; 36415; 80053; 83605; 85025; 87040; 87081; 87430; 87502; 71046; J1100

== ENCOUNTER 2019-05-14 22:59 | Emergency (ER) | payer OTHER ==
[2019-05-14 23:05] VITALS: TEMP 98
[2019-05-14] MEDS ORDERED: MORPHINE SULFATE 4 MG/ML SYRINGE IM STA (23:12)
--- NOTE | 2019-05-14 23:48 | XR ---
EXAMINATION TYPE: XR chest 2V DATE OF EXAM: 05/14/2019 COMPARISON: Today HISTORY: Chest pain TECHNIQUE: FINDINGS: Heart and mediastinum are normal. Lungs are clear. Diaphragm is normal. Bony thorax appears normal. IMPRESSION: Normal chest. No change.
[2019-05-15] MEDS ORDERED: guaiFENesin-Coden 100-10MG/5ML 10 ML CUP PO STA (00:28)
--- NOTE | 2019-05-15 00:30 | ED ---
General Adult HPI - General Chief complaint: Chest Pain Stated complaint: Chest Pain Time Seen by Provider: 05/14/19 23:09 Source: patient Mode of arrival: ambulatory Limitations: no limitations - History of Present Illness Initial comments: 29-year-old female patient who was just discharged 15 minutes ago after being diagnosed with influenza be presents to the emergency department for evaluation of left-sided chest pain. Patient states that she arrived home and had sudden onset of a burning pain to the left side of her chest. Patient states the pain does radiate through to her back. She denies any shortness of breath or worsening of the pain with deep breathing. Patient is reporting the pain at a time 10 on the pain scale. She denies any rash or itching. Denies any throat or tongue swelling. Patient has been sick for the last 3 days with upper respiratory symptoms and fever. She is taking Tamiflu currently. Patient denies any recent rash, abdominal pain, nausea, vomiting, diarrhea, constipation, back pain, numbness, tingling, hematuria, dysuria, urinary urgency, urinary frequency, headache, visual changes, or any other complaints. - Related Data Previous Rx's Medication Instructions Recorded Ciprofloxacin HCl [Cipro] 500 mg PO Q12HR #10 tablet 07/19/18 Albuterol Sulfate [Proair Hfa] 1 - 2 puff INHALATION Q6HR PRN #1 05/14/19 inhaler guaiFENesin-DM 600/30MG [Mucinex 2 each PO Q12HR PRN #20 tab.er.12h 05/14/19 Dm] guaiFENesin-Coden 100-10MG/5ML 5 - 10 ml PO Q6H PRN 3 Days #120 ml 05/15/19 [Robitussin AC] Allergies Allergy/AdvReac Type Severity Reaction Status Date / Time No Known Allergies Allergy Verified 05/14/19 19:14 Review of Systems ROS Statement: Those systems with pertinent positive or pertinent negative responses have been documented in the HPI. ROS Other: All systems not noted in ROS Statement are negative. Past Medical History Past Medical History: Thyroid Disorder Additional Past Medical History / Comment(s): Hypothyroidism, post /breast feeding. History of Any Multi-Drug Resistant Organisms: None Reported, MRSA Date of last positivie culture/infection: 2009 MDRO Source:: vaginal cyst Past Surgical History: Cholecystectomy Additional Past Surgical History / Comment(s): [employer] teeth extraction. Past Anesthesia/Blood Transfusion Reactions: No Reported Reaction Past Psychological History: No Psychological Hx Reported Smoking Status: Former smoker Past Alcohol Use History: Occasional Past Drug Use History: None Reported - Past Family History Mother Family Medical History: No Reported History Additional Family Medical History / Comment(s): Mother is healthy. Father Family Medical History: No Reported History Additional Family Medical History / Comment(s): Father is healthy General Exam Limitations: no limitations General appearance: alert, other (This is a well-developed, well-nourished adult female patient in mild distress related to pain. Vital signs upon presentation are temperature 98.0F, pulse 101, respirations 20, blood pressure 94/66, pulse ox 97% on room air.) Respiratory exam: Present: normal lung sounds bilaterally, other (Tachypnea). Absent: respiratory distress, wheezes, rales, rhonchi, stridor Cardiovascular Exam: Present: regular rate, normal rhythm, normal heart sounds. Absent: systolic murmur, diastolic murmur, rubs, gallop, clicks GI/Abdominal exam: Present: soft, normal bowel sounds. Absent: distended, tenderness, guarding, rebound, rigid Neurological exam: Present: alert, oriented X3, CN II-XII intact Psychiatric exam: Present: normal affect, normal mood Skin exam: Present: warm, dry, intact, normal color. Absent: rash Course Vital Signs 05/14/19 05/15/19 05/15/19 23:02 00:05 01:05 Temperature 98 F Pulse Rate 101 H 80 80 Respiratory 20 18 18 Rate Blood Pressure 94/66 131/89 113/66 O2 Sat by Pulse 97 97 96 Oximetry 05/15/19 01:16 Temperature 98 F Pulse Rate 87 Respiratory 18 Rate Blood Pressure 101/55 O2 Sat by Pulse 97 Oximetry EKG Findings - EKG Comments: EKG Findings:: 2342 shows normal sinus rhythm with a ventricular rate of 68, WA interval 140, QRS duration 78, QTC 416, QTC 442. No evidence of ST elevation or depression. Medical Decision Making - Medical Decision Making 29-year-old female patient percents to the emergency department today for evaluation of left-sided chest pain. Physical examination reveals clear equal lung sounds. EKG showed normal sinus rhythm. X-ray was negative. Labs from previous visit were unremarkable. She was positive for influenza B. Patient was given pain medication here in the department. Upon reevaluation she is resting more comfortably states pain has improved. We did discuss pleurisy versus muscle strain due to coughing as a cause for her symptoms. She'll be discharged to follow-up with her primary care physician for recheck in 1-2 days. Return parameters were discussed in detail. She verbalizes understanding and agrees with this plan. - Radiology Data Radiology results: report reviewed, image reviewed Two-view x-ray of the chest is obtained. Report was reviewed in its entirety. Impression by Dr. Taylor shows normal chest. No change. Disposition Clinical Impression: Left-sided chest pain, Influenza B Disposition: HOME SELF-CARE Condition: Good Instructions (If sedation given, give patient instructions): Chest Pain (ED), Influenza (ED) Additional Instructions: Take medication as directed. Follow-up with her primary care physician for recheck as soon as possible. Return to the emergency department immediately for any new, worsening, or concerning symptoms. Prescriptions: guaiFENesin-Coden 100-10MG/5ML [Robitussin AC] 5 - 10 ml PO Q6H PRN 3 Days #120 ml PRN Reason: Cough Is patient prescribed a controlled substance at d/c from ED?: No Referrals: Mamta Anderson MD [Primary Care Provider] - 1-2 days Time of Disposition: 00:30
[2019-05-15 01:12] VITALS: RESP 18
[2019-05-15 01:17] VITALS: BP 101/55; PULSE 87
== END 2019-05-15 01:17 | disposition home or self-care (01) ==
LOC: EC 22:59
DX: J10.1 Influenza due to other identified influenza virus with other respiratory manifestations (principal); Z87.891 Personal history of nicotine dependence
CPT/HCPCS: 93005; 71046; 99285; 96372; J2270